=== PATIENT | female | born 1935 | race Caucasian/White ===

== ENCOUNTER 2017-04-08 08:34 | Inpatient (IN) | payer OTHER, MEDICARE ==
[2017-04-08] VITALS (9 sets, daily range): BP systolic 91–113; BP diastolic 51–74; PULSE 86–114; RESP 16–22; TEMP 97.7–100; O2SAT 93–96
[~2017-04-08] VITALS: Ht 152.4 cm; Wt 61.9 kg
[2017-04-08] MEDS ORDERED: methylPREDNISolone SOD SUCC 125 MG/2 ML VIAL IVP ONE (08:45)
--- NOTE | 2017-04-08 08:46 | PD ---
HPI Chief Complaint: Respiratory Symptoms Time Seen by Provider: 08:40 Travel History International Travel<30 days: No Contact w/Intl Traveler<30days: No Traveled to known affect area: No History of Present Illness HPI 82-year-old female with history of COPD, here for evaluation of cough, shortness of breath, generalized malaise. Symptoms have been progressively worsening over the last couple of weeks. She was seen by urgent care facility last week and started on an antibiotic which she does not remember the name of. Her symptoms have not been getting any better. She has had a cough productive of greenish/black sputum. No hemoptysis. No history of DVT or PE. No chest pain. Allergies-Medications (Allergen,Severity, Reaction): Coded Allergies: No Known Allergies (Unverified , 04/08/17) Reported Meds & Prescriptions Reported Meds & Active Scripts Active Reported Levaquin (Levofloxacin) 750 Mg Tablet 1 Tab PO DAILY Advair Diskus Inh (Fluticasone-Salmeterol Inh) 100-50 Mcg/Blist Aer 1 Puff INH BID Rinse mouth after use. Advair Diskus Inh (Fluticasone-Salmeterol Inh) 100-50 Mcg/Blist Aer 1 Puff INH BID Rinse mouth after use. Albuterol Neb (Albuterol Sulfate) Unknown Strength Neb Unknown Dose NEB QID NEB PRN Advil Pm (Ibuprofen-Diphenhydramine) 200-38 Mg Tab 1 Tab PO HS PRN Lipitor (Atorvastatin Calcium) 10 Mg Tab 10 Mg PO HS Glucosamine (Glucosamine Sulfate) Unknown Strength Cap Unknown Dose PO DAILY Multiple Vitamin 1 Tab 1 Tab PO DAILY Calcium 600 with Vitamin D (Calcium Carbonate-Cholecalciferol) 600-400 mg-Unit Tab 1 Tab PO DAILY Dicyclomine (Dicyclomine HCl) 10 Mg Cap 10 Mg PO BID Lomotil (Diphenoxylate-Atropine) 2.5-0.025 Mg Tab 1 Tab PO DAILY PRN Synthroid (Levothyroxine Sodium) 88 Mcg Tab 88 Mcg PO DAILY Review of Systems Except as stated in HPI: all other systems reviewed are Neg Physical Exam Narrative GENERAL: Well-developed, well-nourished, no apparent distress. SKIN: Focused skin assessment warm/dry. HEAD: Atraumatic. Normocephalic. EYES: Pupils equal and round. No scleral icterus. No injection or drainage. ENT: Mucous membranes pink and moist. NECK: Trachea midline. No JVD. CARDIOVASCULAR: Regular rate and rhythm. No murmur appreciated. RESPIRATORY: No accessory muscle use. Poor air movement bilaterally. Bibasilar rhonchi. No rales. End expiratory wheezes bilaterally. Breath sounds equal bilaterally. GASTROINTESTINAL: Abdomen soft, non-tender, nondistended. MUSCULOSKELETAL: No obvious deformities. No clubbing. No cyanosis. No edema. NEUROLOGICAL: Awake and alert. No obvious cranial nerve deficits. Motor grossly within normal limits. Normal speech. PSYCHIATRIC: Appropriate mood and affect; insight and judgment normal. Data Data Last Documented VS Vital Signs Date Time Temp Pulse Resp B/P (MAP) Pulse Ox O2 Delivery O2 Flow Rate FiO2 04/08/17 09:55 102 16 102/51 (68) 95 Room Air 04/08/17 08:50 2.00 04/08/17 08:35 100.0 Orders Orders Complete Blood Count With Diff (04/08/17 08:43) Comprehensive Metabolic Panel (04/08/17 08:43) B-Type Natriuretic Peptide (04/08/17 08:43) Act Partial Throm Time (Ptt) (04/08/17 08:43) Prothrombin Time / Inr (Pt) (04/08/17 08:43) Ckmb (Isoenzyme) Profile (04/08/17 08:43) Troponin I (04/08/17 08:43) Blood Culture (04/08/17 08:43) Iv Access Insert/Monitor (04/08/17 08:43) Electrocardiogram (04/08/17 08:43) Ecg Monitoring (04/08/17 08:43) Oximetry (04/08/17 08:43) Oxygen Administration (04/08/17 08:43) Chest, Single Ap (04/08/17 08:43) Sodium Chloride 0.9% Flush (Ns Flush) (04/08/17 08:45) Methylprednisolone So Succ Inj (Solumedr (04/08/17 08:45) Albuterol-Ipratropium Neb (Duoneb Neb) (04/08/17 08:45) Acetaminophen (Tylenol) (04/08/17 09:00) Ceftriaxone Inj (Rocephin Inj) (04/08/17 09:30) Azithromycin Inj (Zithromax Inj) (04/08/17 09:30) CKMB (04/08/17 09:00) CKMB% (04/08/17 09:00) Admit Order (Ed Use Only) (04/08/17 10:31) Labs Laboratory Tests Test 04/08/17 08:55 04/08/17 09:00 04/08/17 09:08 White Blood Count 9.6 TH/MM3 Red Blood Count 3.78 MIL/MM3 Hemoglobin 11.8 GM/DL Hematocrit 34.5 % Mean Corpuscular Volume 91.4 FL Mean Corpuscular Hemoglobin 31.2 PG Mean Corpuscular Hemoglobin Concent 34.2 % Red Cell Distribution Width 11.9 % Platelet Count 180 TH/MM3 Mean Platelet Volume 10.0 FL Neutrophils (%) (Auto) 85.7 % Lymphocytes (%) (Auto) 3.7 % Monocytes (%) (Auto) 9.7 % Eosinophils (%) (Auto) 0.8 % Basophils (%) (Auto) 0.1 % Neutrophils # (Auto) 8.2 TH/MM3 Lymphocytes # (Auto) 0.4 TH/MM3 Monocytes # (Auto) 0.9 TH/MM3 Eosinophils # (Auto) 0.1 TH/MM3 Basophils # (Auto) 0.0 TH/MM3 CBC Comment DIFF FINAL Differential Comment Blood Urea Nitrogen 19 MG/DL Creatinine 1.10 MG/DL Random Glucose 118 MG/DL Total Protein 7.1 GM/DL Albumin 3.0 GM/DL Calcium Level 8.9 MG/DL Alkaline Phosphatase 85 U/L Aspartate Amino Transf (AST/SGOT) 24 U/L Alanine Aminotransferase (ALT/SGPT) 30 U/L Total Bilirubin 0.5 MG/DL Sodium Level 136 MEQ/L Potassium Level 4.3 MEQ/L Chloride Level 101 MEQ/L Carbon Dioxide Level 25.1 MEQ/L Anion Gap 10 MEQ/L Estimat Glomerular Filtration Rate 48 ML/MIN Total Creatine Kinase 231 U/L Creatine Kinase MB 3.9 NG/ML Creatine Kinase MB % 1.7 % Troponin I 0.02 NG/ML Prothrombin Time 10.8 SEC Prothromb Time International Ratio 1.0 RATIO Activated Partial Thromboplast Time 33.4 SEC B-Type Natriuretic Peptide 412 PG/ML MDM Medical Decision Making Medical Screen Exam Complete: Yes Emergency Medical Condition: Yes Interpretation(s) EKG: Ectopic atrial rhythm, rate 101, LBBB, Differential Diagnosis Pneumonia, bronchitis, COPD exacerbation, pulmonary edema, pneumothorax, ACS Narrative Course Chest x-ray shows bibasilar densities. Patient was given 3 DuoNeb treatments and IV Solu-Medrol with improvement in wheezing. Patient was on Levaquin as an outpatient. She was on this medication for 3 days. She was febrile on arrival. She'll be admitted for further treatment and evaluation of COPD exacerbation as well as pneumonia with failed outpatient therapy. Case discussed with hospitalist Dr. Johnson who will admit the patient to her service. Diagnosis Primary Impression: Pneumonia Qualified Codes: J18.9 - Pneumonia, unspecified organism Additional Impression: COPD exacerbation Admitting Information Admitting Physician Requests: Admit Jian Poole MD Apr 08, 2017 08:46
[2017-04-08] MEDS: RESP: ALBUTEROL 2.5 MG/IPRATROPIUM 0.5 MG NEB (SCH) INH ×4 (08:49→21:24)
[2017-04-08] MEDS ORDERED: ACETAMINOPHEN 325 MG TAB PO ONE (09:00)
--- NOTE | 2017-04-08 09:26 | RADRPT ---
EXAM DATE/TIME: 04/08/2017 09:14 [facility] COMPARISON: No previous studies available for comparison. EXTERNAL COMPARISON : [facility] February 06, 2017 INDICATIONS : Short of breath, cough. MEDICAL HISTORY : Chronic obstructive pulmonary disease. SURGICAL HISTORY : None. ENCOUNTER: Initial ACUITY: 3 weeks PAIN SCORE: 0/10 LOCATION: Bilateral chest FINDINGS: A single view of the chest is obtained. Cardiomegaly. Bibasilar densities. The cardiomediastinal con tours are unremarkable. Osseous structures are intact. CONCLUSION: Bibasilar densities. Cardiomegaly. Robson Rodriguez MD on April 08, 2017 at 9:23 Board Certified Radiologist. This report was verified electronically.
[2017-04-08] MEDS ORDERED: cefTRIAXone INJ 1,000 MG in SODIUM CHLORIDE 0.9% INJ 100 ML IV ONE (09:30)
[2017-04-08] MEDS ORDERED: AZITHROMYCIN INJ 500 MG in SODIUM CHLOR 0.9% 250 ML INJ 250 ML IV ONE (09:30)
[2017-04-08 09:31] LABS: AUTOMATED NEUTROPHIL # 8.2 TH/MM3 (1.8-7.7); BASOPHIL % 0.1 % (0.0-2.0); EOSINOPHIL # 0.1 TH/MM3 (0-0.4); EOSINOPHIL % 0.8 % (0.0-4.0); HEMATOCRIT 34.5 % (35.0-46.0); LYMPH % 3.7 % (9.0-44.0); LYMPHOCYTE # 0.4 TH/MM3 (1.0-4.8); MEAN CELL VOLUME 91.4 FL (80.0-100.0); MEAN CORPUSCULAR HEMOGLOBIN 31.2 PG (27.0-34.0); MEAN CORPUSCULAR HGB CONC 34.2 % (32.0-36.0); MONO % 9.7 % (0.0-8.0); NEUT % 85.7 % (16.0-70.0); PLATELET COUNT 180 TH/MM3 (150-450); RED BLOOD COUNT 3.78 MIL/MM3 (4.00-5.30); RED CELL DISTRIBUTION WIDTH 11.9 % (11.6-17.2); WHITE BLOOD COUNT 9.6 TH/MM3 (4.0-11.0)
[2017-04-08 09:41] LABS: HEMO FLAGS DIFF FINAL
[2017-04-08 09:45] LABS: APTT (PATIENT) 33.4 SEC (24.3-30.1); PROTHROMBIN TIME - PATIENT 10.8 SEC (9.8-11.6)
[2017-04-08] MEDS: SODIUM CHLORIDE 0.9% FLUSH 10 ML FLUSH IVF PRN ×2 (09:49→10:39)
[2017-04-08 09:57] LABS: CHLORIDE 101 MEQ/L (98-107); POTASSIUM 4.3 MEQ/L (3.5-5.1); SODIUM (NA) 136 MEQ/L (136-145)
[2017-04-08 10:02] LABS: ANION GAP 10 MEQ/L (5-15); BICARBONATE 25.1 MEQ/L (21.0-32.0); BLOOD UREA NITROGEN 19 MG/DL (7-18)
[2017-04-08] MEDS ORDERED: ADVI200T17 PO (10:04)
[2017-04-08] MEDS ORDERED: LIPI10TA PO (10:04)
[2017-04-08] MEDS ORDERED: SYNT88TA PO (10:04)
[2017-04-08] MEDS ORDERED: LEVA750T9 PO (10:04)
[2017-04-08] MEDS ORDERED: MULTTAB67 PO (10:04)
[2017-04-08] MEDS ORDERED: CALC1TAB87 PO (10:04)
[2017-04-08] MEDS ORDERED: GLUC500C5 PO (10:04)
[2017-04-08] MEDS ORDERED: ADVA100A INH ×2 (10:04)
[2017-04-08] MEDS ORDERED: DICY10CA12 PO (10:04)
[2017-04-08] MEDS ORDERED: LOMO2.5T PO (10:04)
[2017-04-08] MEDS ORDERED: ALBU0.63 NEB (10:04)
[2017-04-08 10:05] LABS: ALT (GPT) 30 U/L (10-53); AST (GOT) 24 U/L (15-37); GLOMERULAR FILTRATION RATE 48 ML/MIN (>89)
[2017-04-08 10:06] LABS: TOTAL BILIRUBIN ADULT 0.5 MG/DL (0.2-1.0)
[2017-04-08 10:08] LABS: ALKALINE PHOSPHATASE 85 U/L (45-117); CREATINE KINASE 231 U/L (26-192)
[2017-04-08 10:20] LABS: CKMB 3.9 NG/ML (0.5-3.6)
[2017-04-08] MEDS ORDERED: SODIUM CHLORIDE 0.9% FLUSH 10 ML FLUSH IV FLUSH PRN (11:30)
[2017-04-08] MEDS ORDERED: RESP: ALBUTEROL 2.5 MG/3 ML NEB (PRN) INH (11:30)
[2017-04-08] MEDS ORDERED: FUROSEMIDE 20 MG/2 ML VIAL IV PUSH ONE (12:00)
--- NOTE | 2017-04-08 12:07 | EKG ---
Date Performed: 04/08/2017 Time Performed: 09:00:37 PTAGE: 82 years EKG: UNCERTAIN REGULAR RHYTHM POSSIBLY AV PACED RHYTHM, POSSIBLE Sinus rhythm LEFT BUNDLE BRANCH BLOCK ABNORMAL ECG NO PREVIOUS TRACING DOCTOR: Dav Blank Interpretating Date/Time 04/08/2017 12:05:42
[2017-04-08] MEDS: ENOXAPARIN SODIUM 40 MG/0.4 ML SYRINGE SQ SCH (12:10)
--- NOTE | 2017-04-08 13:07 | HHI.HP ---
[facility] [place] Lynette Huang MD Admission Diagnosis pneumonia, COPD exacerbation Diagnoses: Chief Complaint: Cough and shortness of breath Travel History International Travel<30 Days: No Contact w/Intl Traveler <30 Da: No Traveled to Known Affected Are: No Sepsis Criteria SIRS Criteria (2 or more): Heart rate over 90 History of Present Illness Patient is a very pleasant 82-year-old female with a known history of COPD who has had about a week of increased shortness of breath, productive cough and malaise. She called her primary doctor who gave her some antibiotics and she took them for the last 3 days. She notes increased work of breathing and dyspnea on exertion. She also complaining of insomnia for the last couple days. She does not have orthopnea by history and denies any edema. Patient's x -ray on my review does show some bilateral patchiness which coincides with the patient's clinical symptoms of pneumonia. Patient has been tachycardic and tachypneic with low-grade temperature in the emergency room. She had some improvement with nebulizer here as well as of IV steroids given in the emergency room. Patient's been admitted to the hospital due to exacerbation of COPD and possible early pneumonia. Review of Systems Constitutional: DENIES: Diaphoretic episodes, Fatigue, Fever, Weight gain, Weight loss, Chills, Dizziness, Change in appetite, Night Sweats Endocrine: DENIES: Abnorml menstrual pattern, Heat/cold intolerance, Polydipsia , Polyuria, Polyphagia Eyes: DENIES: Blurred vision, Diplopia, Eye inflammation, Eye pain, Vision loss , Photosensitivity, Double Vision Ears, nose, mouth, throat: DENIES: Tinnitus, Hearing loss, Vertigo, Nasal discharge, Oral lesions, Throat pain, Hoarseness, Ear Pain, Running Nose, Epistaxis, Sinus Pain, Toothache, Odynophagia Respiratory: COMPLAINS OF: Cough, Wheezing, Sputum production, Shortness of breath, DENIES: Apneas, Snoring, Hemoptysis Cardiovascular: DENIES: Chest pain, Palpitations, Syncope, Dyspnea on Exertion , PND, Lower Extremity Edema, Orthopnea, Claudication Gastrointestinal: DENIES: Abdominal pain, Black stools, Bloody stools, Constipation, Diarrhea, Nausea, Vomiting, Difficulty Swallowing, Anorexia Genitourinary: DENIES: Abnormal vaginal bleeding, Dysmenorrhea, Dyspareunia, Sexual dysfunction, Urinary frequency, Urinary incontinence, Urgency, Hematuria , Dysuria, Nocturia, Vaginal discharge Musculoskeletal: DENIES: Joint pain, Muscle aches, Stiffness, Joint Swelling, Back pain, Neck pain Hematologic/lymphatic: DENIES: Bruising, Lymphadenopathy Immunologic/allergic: DENIES: Eczema, Urticaria Neurologic: DENIES: Abnormal gait, Headache, Localized weakness, Paresthesias, Seizures, Speech Problems, Tremor, Poor Balance Psychiatric: DENIES: Anxiety, Confusion, Mood changes, Depression, Hallucinations, Agitation, Suicidal Ideation, Homicidal Ideation, Delusions Except as stated in HPI: all other systems reviewed are Neg Past Family Social History Past Medical History COPD Hyperlipidemia Joint pain Thyroid disease 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 Past Surgical History Total abdominal hysterectomy, right hand, tonsils Multiple abdominal surgeries Bladder reduction Reported Medications Reviewed in the medical record Allergies: Coded Allergies: No Known Allergies (Unverified , 04/08/17) Active Ordered Medications Reviewed in the medical record Family History Father has a history of Alzheimer's and , mother healthy but at age 96 Physical Exam Vital Signs Vital Signs Date Time Temp Pulse Resp B/P (MAP) Pulse Ox O2 Delivery O2 Flow Rate FiO2 04/08/17 12:31 92 16 97/58 (71) 95 Nasal Cannula 2.00 04/08/17 12:30 98.8 87 20 96/61 (73) 96 04/08/17 10:30 93 16 95 Room Air 2.00 04/08/17 09:55 102 16 102/51 (68) 95 Room Air 04/08/17 09:05 105 16 99/61 (74) 96 Room Air 04/08/17 08:50 95 Nasal Cannula 2.00 04/08/17 08:45 96 Nasal Cannula 2.00 04/08/17 08:45 22 96 Nasal Cannula 2.00 04/08/17 08:45 110 22 96 Nasal Cannula 2.00 04/08/17 08:35 100.0 114 22 113/74 (87) 93 Physical Exam GENERAL: This is a well-nourished, well-developed patient,hoarse, increased AP diameter SKIN: No rashes, ecchymoses or lesions. Cool and dry. HEAD: Atraumatic. Normocephalic. No temporal or scalp tenderness. EYES: Pupils equal round and reactive. Extraocular motions intact. No scleral icterus. No injection or drainage. ENT: Nose without bleeding, purulent drainage or septal hematoma. Throat without erythema, tonsillar hypertrophy or exudate. Uvula midline. Airway patent. NECK: Trachea midline. No JVD or lymphadenopathy. Supple, nontender, no meningeal signs. CARDIOVASCULAR: Regular rate and rhythm without murmurs, gallops, or rubs. RESPIRATORY: Decreased breath sounds equal bilaterally. No wheezes, rales, or rhonchi. GASTROINTESTINAL: Abdomen soft, non-tender, nondistended. No hepato-splenomegaly , or palpable masses. No guarding. MUSCULOSKELETAL: Extremities without clubbing, cyanosis, or edema. No joint tenderness, effusion, or edema noted. No calf tenderness. Negative Homans sign bilaterally. NEUROLOGICAL: Awake and alert. Cranial nerves II through XII intact. Motor and sensory grossly within normal limits. Five out of 5 muscle strength in all muscle groups. Normal speech. Laboratory Laboratory Tests Test 04/08/17 08:55 04/08/17 09:00 04/08/17 09:08 White Blood Count 9.6 Red Blood Count 3.78 Hemoglobin 11.8 Hematocrit 34.5 Mean Corpuscular Volume 91.4 Mean Corpuscular Hemoglobin 31.2 Mean Corpuscular Hemoglobin Concent 34.2 Red Cell Distribution Width 11.9 Platelet Count 180 Mean Platelet Volume 10.0 Neutrophils (%) (Auto) 85.7 Lymphocytes (%) (Auto) 3.7 Monocytes (%) (Auto) 9.7 Eosinophils (%) (Auto) 0.8 Basophils (%) (Auto) 0.1 Neutrophils # (Auto) 8.2 Lymphocytes # (Auto) 0.4 Monocytes # (Auto) 0.9 Eosinophils # (Auto) 0.1 Basophils # (Auto) 0.0 CBC Comment DIFF FINAL Differential Comment Blood Urea Nitrogen 19 Creatinine 1.10 Random Glucose 118 Total Protein 7.1 Albumin 3.0 Calcium Level 8.9 Alkaline Phosphatase 85 Aspartate Amino Transf (AST/SGOT) 24 Alanine Aminotransferase (ALT/SGPT) 30 Total Bilirubin 0.5 Sodium Level 136 Potassium Level 4.3 Chloride Level 101 Carbon Dioxide Level 25.1 Anion Gap 10 Estimat Glomerular Filtration Rate 48 Total Creatine Kinase 231 Creatine Kinase MB 3.9 Creatine Kinase MB % 1.7 Troponin I 0.02 Prothrombin Time 10.8 Prothromb Time International Ratio 1.0 Activated Partial Thromboplast Time 33.4 B-Type Natriuretic Peptide 412 Date/Time Source Procedure Growth Status 04/08/17 09:08 Blood Peripheral Aerobic Blood Culture Pending Received 04/08/17 09:08 Blood Peripheral Anaerobic Blood Culture Pending Received Result Diagram: 04/08/17 0855 04/08/17 0900 Imaging Chest x-ray on my review does show some bilateral patchiness with increased air hodge Caprini VTE Risk Assessment Caprini VTE Risk Assessment: Mod/High Risk (score >= 2) Caprini Risk Assessment Model Point Value = 1 Point Value = 2 Point Value = 3 Point Value = 5 Age 41-60 Minor surgery BMI > 25 kg/m2 Swollen legs Varicose veins or History of unexplained or recurrent spontaneous Oral contraceptives or hormone replacement Sepsis (< 1 month) Serious lung disease, including pneumonia (< 1 month) Abnormal pulmonary function Acute myocardial infarction Congestive heart failure (< 1 month) History of inflammatory bowel disease Medical patient at bed rest Age 61-74 Arthroscopic surgery Major open surgery (> 45 min) Laparoscopic surgery (> 45 min) Malignancy Confined to bed (> 72 hours) Immobilizing plaster cast Central venous access Age >= 75 History of VTE Family history of VTE Factor V Leiden Prothrombin [id number] Lupus anticoagulant Anticardiolipin antibodies Elevated serum homocysteine Heparin-induced thrombocytopenia Other congenital or acquired thrombophilia Stroke (< 1 month) Elective arthroplasty Hip, pelvis, or leg fracture Acute spinal cord injury (< 1 month) Prophylaxis Regimen Total Risk Factor Score Risk Level Prophylaxis Regimen 0-1 Low Early ambulation 2 Moderate Order ONE of the following: *Sequential Compression Device (SCD) *Heparin 5000 units SQ BID 3-4 Higher Order ONE of the following medications: *Heparin 5000 units SQ TID *Enoxaparin/Lovenox 40 mg SQ daily (WT < 150 kg, CrCl > 30 mL/min) *Enoxaparin/Lovenox 30 mg SQ daily (WT < 150 kg, CrCl > 10-29 mL/min) *Enoxaparin/Lovenox 30 mg SQ BID (WT < 150 kg, CrCl > 30 mL/min) AND/OR *Sequential Compression Device (SCD) 5 or more Highest Order ONE of the following medications: *Heparin 5000 units SQ TID (Preferred with Epidurals) *Enoxaparin/Lovenox 40 mg SQ daily (WT < 150 kg, CrCl > 30 mL/min) *Enoxaparin/Lovenox 30 mg SQ daily (WT < 150 kg, CrCl > 10-29 mL/min) *Enoxaparin/Lovenox 30 mg SQ BID (WT < 150 kg, CrCl > 30 mL/min) AND *Sequential Compression Device (SCD) Assessment and Plan Problem List: (1) COPD exacerbation ICD Code: J44.1 - Chronic obstructive pulmonary disease with (acute) exacerbation Status: Acute Plan: Nebs, IV abx, IV steroids, O2 echo pending (2) Pneumonia ICD Code: J18.9 - Pneumonia, unspecified organism Status: Acute Plan: Continue IV antibiotics, bronchodilators and follow for influenza and sputum if available Code Status Full code Discussed Condition With BLAS Lopez, patient and daughter Physician Certification 2 Midnight Certification Type: Admission for Inpatient Services Order for Inpatient Services The services are ordered in accordance with Medicare regulations or non- Medicare payer requirements, as applicable. In the case of services not specified as inpatient-only, they are appropriately provided as inpatient services in accordance with the 2-midnight benchmark. Estimated LOS (days): 3 3 days is the estimated time the patient will need to remain in the hospital, assuming treatment plan goals are met and no additional complications. Post-Hospital Plan: Home Problem Qualifiers (1) Pneumonia: Qualified Codes: J18.9 - Pneumonia, unspecified organism Lisbeth Johnson MD Apr 08, 2017 13:07
[2017-04-08] MEDS ORDERED: IBUPROFEN 200 MG TAB PO PRN (21:00)
[2017-04-08] MEDS ORDERED: diphenhydrAMINE HCL 25 MG CAP PO PRN (21:00)
[2017-04-08] MEDS: methylPREDNISolone SOD SUCC 40 MG/1 ML VIAL IV PUSH SCH (21:50)
[2017-04-08] MEDS: SODIUM CHLORIDE 0.9% FLUSH 10 ML FLUSH IV FLUSH SCH (21:52)
[2017-04-08] MEDS: DICYCLOMINE HCL 10 MG CAP PO SCH (21:52)
[2017-04-08] MEDS: ZOLPIDEM TARTRATE 10 MG TAB PO PRN (22:26)
[2017-04-09] VITALS (8 sets, daily range): BP systolic 100–122; BP diastolic 55–75; PULSE 79–87; RESP 16–22; TEMP 95.5–97; O2SAT 92–97
[2017-04-09] MEDS: RESP: ALBUTEROL 2.5 MG/IPRATROPIUM 0.5 MG NEB (SCH) INH ×4 (03:57→21:15)
[2017-04-09] MEDS: LEVOTHYROXINE SODIUM 88 MCG TAB PO SCH (06:08)
[2017-04-09] MEDS: SODIUM CHLORIDE 0.9% FLUSH 10 ML FLUSH IV FLUSH SCH ×2 (09:11→21:06)
[2017-04-09] MEDS: AZITHROMYCIN INJ 500 MG in SODIUM CHLOR 0.9% 250 ML INJ 250 ML IV SCH (09:11)
[2017-04-09] MEDS: cefTRIAXone INJ 1,000 MG in SODIUM CHLORIDE 0.9% INJ 100 ML IV SCH (09:11)
[2017-04-09] MEDS: DICYCLOMINE HCL 10 MG CAP PO SCH ×2 (09:12→21:05)
[2017-04-09] MEDS: methylPREDNISolone SOD SUCC 40 MG/1 ML VIAL IV PUSH SCH ×2 (09:12→21:06)
[2017-04-09] MEDS: ENOXAPARIN SODIUM 40 MG/0.4 ML SYRINGE SQ SCH (09:17)
[2017-04-09] MEDS: DIPHENOXYLATE/ATROPINE 2.5 MG/0.025 MG TAB PO PRN (09:17)
--- NOTE | 2017-04-09 10:29 | HHI.PR ---
Subjective Remarks Patient seen and evaluated today in follow-up for pneumonia with COPD exacerbation. Increased congestion and work of breathing overnight with increased sputum and cough. Still quite hoarse. Care plan discussed with patient and Sterling RN Objective Vitals Vital Signs Date Time Temp Pulse Resp B/P (MAP) Pulse Ox O2 Delivery O2 Flow Rate FiO2 04/09/17 08:00 95.5 85 21 104/73 (83) 97 04/09/17 00:00 96.7 87 16 100/55 (70) 95 04/08/17 21:24 94 Nasal Cannula 2.00 04/08/17 20:10 97.7 86 20 100/57 (71) 04/08/17 12:31 92 16 97/58 (71) 95 Nasal Cannula 2.00 04/08/17 12:30 98.8 87 20 96/61 (73) 96 04/08/17 10:30 93 16 95 Room Air 2.00 I/O 04/08/17 04/08/17 04/08/17 04/09/17 04/09/17 04/09/17 07:00 15:00 23:00 07:00 15:00 23:00 Intake Total 350 ml 220 ml Balance 350 ml 220 ml Intake Oral 220 ml IV Total 350 ml # Voids 1 1 Result Diagram: 04/08/17 0855 04/08/17 0900 Objective Remarks GENERAL: This is a well-nourished, well-developed patient, ill appearing and hoarse CARDIOVASCULAR: Regular rate and rhythm without murmurs, gallops, or rubs. RESPIRATORY: Bilateral coarse rhonchi with scattered wheezes. GASTROINTESTINAL: Abdomen soft, non-tender, nondistended. Normal active bowel sounds MUSCULOSKELETAL: Extremities without clubbing, cyanosis, or edema. NEURO: Alert & Oriented x4 to person, place, time, situation. Moves all ext x4 A/P Problem List: (1) COPD exacerbation ICD Code: J44.1 - Chronic obstructive pulmonary disease with (acute) exacerbation Status: Acute Plan: Nebs, IV abx, IV steroids, O2 echo pending (2) Pneumonia ICD Code: J18.9 - Pneumonia, unspecified organism Status: Acute Plan: Continue IV antibiotics, bronchodilators and follow f sputum if available CT of the chest to follow-up legionella pending influenza neg Problem Qualifiers (1) Pneumonia: Qualified Codes: J18.9 - Pneumonia, unspecified organism Lisbeth Johnson MD Apr 09, 2017 10:29
[2017-04-09 11:42] LABS: AUTOMATED NEUTROPHIL # 8.7 TH/MM3 (1.8-7.7); EOSINOPHIL % 0.1 % (0.0-4.0); HEMATOCRIT 34.1 % (35.0-46.0); HEMO FLAGS DIFF FINAL; LYMPH % 4.9 % (9.0-44.0); LYMPHOCYTE # 0.5 TH/MM3 (1.0-4.8); MEAN CORPUSCULAR HEMOGLOBIN 31.3 PG (27.0-34.0); MEAN CORPUSCULAR HGB CONC 34.1 % (32.0-36.0); MONO % 4.7 % (0.0-8.0); NEUT % 90.3 % (16.0-70.0); PLATELET COUNT 199 TH/MM3 (150-450); RED BLOOD COUNT 3.71 MIL/MM3 (4.00-5.30); RED CELL DISTRIBUTION WIDTH 12.5 % (11.6-17.2); WHITE BLOOD COUNT 9.7 TH/MM3 (4.0-11.0)
--- NOTE | 2017-04-09 11:51 | RADRPT ---
EXAM DATE/TIME: 04/09/2017 11:14 [facility] COMPARISON: No previous studies available for comparison. INDICATIONS : Abnormal chest xray. Cough. RADIATION DOSE: 6.43 CTDIvol (mGy) MEDICAL HISTORY : Chronic obstructive pulmonary disease. Hypercholesterolemia. SURGICAL HISTORY : None. ENCOUNTER: Initial ACUITY: 2 days PAIN SCALE: 0/10 LOCATION: chest TECHNIQUE: Volumetric scanning of the chest was performed. Using automated exposure control and adjustment of t he mA and/or kV according to patient size, radiation dose was kept as low as reasonably achievable to obtain optimal diagnostic quality images. DICOM format image data is available electronically for r eview and comparison. Follow-up recommendations for detected pulmonary nodules are based at a minimum on nodule size and pa tient risk factors according to Fleischner Society Guidelines. FINDINGS: LUNGS: There are scattered groundglass opacities in the bilateral posterior lower lobes, lingula, and upper lobes. PLEURAE: There is trace right pleural effusion. MEDIASTINUM: Subcentimeter mediastinal nodes do not meet CT size criteria. Evaluation of the yue is limited due t o lack of contrast. There is small anterior pericardial effusion. Moderate coronary artery calcificat ions. Heart is otherwise grossly unremarkable. AXILLAE: Within normal limits. No lymphadenopathy. MUSCULOSKELETAL: Within normal limits for patient age. MISCELLANEOUS: The visualized upper abdominal organs demonstrate no acute abnormality. CONCLUSION: 1. Scattered bilateral bilobar ground glass opacities concerning for multilobar pneumonia or atypical pneumonia (PCP, CMV, RSV) in the appropriate clinical setting. Differential considerations include a cute interstitial pneumonia, developing pulmonary edema, developing ARDS, hypersensitivity pneumoniti s and adenocarcinoma in situ amongst other etiologies. Followup to resolution is recommended. 2. Trace right pleural effusion. 3. Trace pericardial effusion. 4. Moderate coronary artery cavitations. Abel Frankel MD on April 09, 2017 at 11:38 Board Certified Radiologist. This report was verified electronically.
[2017-04-09 11:59] LABS: POTASSIUM 3.6 MEQ/L (3.5-5.1)
[2017-04-09] MEDS ORDERED: LEVOFLOXACIN 750 MG PREMIX INJ 150 ML IV SCH (12:00)
[2017-04-09 12:02] LABS: BICARBONATE 25.6 MEQ/L (21.0-32.0)
--- NOTE | 2017-04-09 15:00 | ECHRPT ---
Indication: SHORTNESS OF BREATH CONCLUSIONS The left ventricular systolic function is severely reduced with an estimated ejection fraction in th e range of 30-35%. Global hypokinesis Moderately dilated left ventricle. Wall thickness is normal. Mild thickening of the mitral valve leaflets. severe mitral valve regurgitation. Aortic valve sclerosis is present. Mild aortic valve regurgitation. There is mild tricuspid valve regurgitation. The estimated pulmonary arterial pressure is 28 mmHg. BP: 100 / 55 HR: 70 Rhythm: Sinus MEASUREMENTS (Male / Female) Normal Values Technical Quality:Good 2D ECHO LV Diastolic Diameter PLAX 5.9 cm 4.2 - 5.9 / 3.9 - 5.3 cm LV Systolic Diameter PLAX 5.0 cm IVS Diastolic Thickness 0.9 cm 0.6 - 1.0 / 0.6 - 0.9 cm LVPW Diastolic Thickness 0.9 cm 0.6 - 1.0 / 0.6 - 0.9 cm LV Relative Wall Thickness 0.3 RV Internal Dim ED PLAX 2.0 cm LA Systolic Diameter LX 3.4 cm 3.0 - 4.0 / 2.7 - 3.8 cm LV Ejection Fraction MOD 4C 29.8 % LV Cardiac Index MOD 4C 1572.7 cm/minm LV Ejection Fraction 4C AL 32.3 % LV Cardiac Index 4C AL 1778.4 cm/minm M-MODE Aortic Root Diameter MM 2.4 cm AV Cusp Separation MM 1.5 cm DOPPLER AV Peak Velocity 166.0 cm/s AV Peak Gradient 11.0 mmHg AI Peak Velocity 319.0 cm/s AI Peak Gradient 40.7 mmHg AI Pressure Half Time 507.0 ms LVOT Peak Velocity 120.0 cm/s LVOT Peak Gradient 5.8 mmHg MV Area PHT 5.9 cm Mitral E Point Velocity 104.0 cm/s Mitral A Point Velocity 97.7 cm/s Mitral E to A Ratio 1.1 LV E' Lateral Velocity 6.4 cm/s Mitral E to LV E' Lateral Ratio 16.2 LV E' Septal Velocity 4.9 cm/s Mitral E to LV E' Septal Ratio 21.4 TR Peak Velocity 212.0 cm/s TR Peak Gradient 18.0 mmHg PV Peak Velocity 113.0 cm/s PV Peak Gradient 5.1 mmHg FINDINGS LEFT VENTRICLE The left ventricular systolic function is severely reduced with an estimated ejection fraction in th e range of 30-35%. Moderately dilated left ventricle. Wall thickness is normal. RIGHT VENTRICLE Normal right ventricular size and systolic function. LEFT ATRIUM The left atrial size is normal. RIGHT ATRIUM The right atrial size is normal. ATRIAL SEPTUM Normal atrial septal thickness without atrial level shunting by limited color doppler interrogation. AORTA The aortic root and proximal ascending aorta are normal in size on limited imaging. MITRAL VALVE Mild thickening of the mitral valve leaflets. severe mitral valve regurgitation. AORTIC VALVE Aortic valve sclerosis is present. Mild aortic valve regurgitation. TRICUSPID VALVE There is mild tricuspid valve regurgitation. The estimated pulmonary arterial pressure is 28 mmHg. PULMONARY VALVE The pulmonary valve is not well visualized. VESSELS The inferior vena cava is normal in size. PERICARDIUM No pericardial effusion. Suly Nguyen MD, FACC (Electronically Signed) Final Date:09 April 2017 14:59
[2017-04-09] MEDS: BENZONATATE 100 MG CAP PO PRN ×2 (15:56→22:48)
[2017-04-09] MEDS: ZOLPIDEM TARTRATE 10 MG TAB PO PRN (22:48)
[2017-04-10] VITALS: BP 97/62; PULSE 89; RESP 20; TEMP 97; O2SAT 95
[2017-04-10] MEDS: RESP: ALBUTEROL 2.5 MG/IPRATROPIUM 0.5 MG NEB (SCH) INH ×4 (04:00→21:00)
[2017-04-10] MEDS: LEVOTHYROXINE SODIUM 88 MCG TAB PO SCH (05:37)
[2017-04-10] MEDS: BENZONATATE 100 MG CAP PO PRN ×3 (05:37→21:27)
[2017-04-10 08:00] VITALS: BP_SYST 101; BP_SYST 96; BP_DIAS 59; BP_DIAS 65; PULSE 76; PULSE 79; RESP 16; TEMP 97; TEMP 97.3; O2SAT 95; O2SAT 96
[2017-04-10] MEDS: DICYCLOMINE HCL 10 MG CAP PO SCH ×2 (08:38→20:33)
[2017-04-10] MEDS: SODIUM CHLORIDE 0.9% FLUSH 10 ML FLUSH IV FLUSH SCH ×2 (08:38→20:34)
[2017-04-10] MEDS: cefTRIAXone INJ 1,000 MG in SODIUM CHLORIDE 0.9% INJ 100 ML IV SCH (08:38)
[2017-04-10] MEDS: methylPREDNISolone SOD SUCC 40 MG/1 ML VIAL IV PUSH SCH ×2 (08:38→20:33)
[2017-04-10 09:52] VITALS: O2SAT 92
[2017-04-10] MEDS: AZITHROMYCIN INJ 500 MG in SODIUM CHLOR 0.9% 250 ML INJ 250 ML IV SCH (10:34)
[2017-04-10] MEDS: ACETAMINOPHEN 325 MG TAB PO PRN ×2 (11:18→21:26)
[2017-04-10] MEDS: ENOXAPARIN SODIUM 40 MG/0.4 ML SYRINGE SQ SCH (11:18)
[2017-04-10 12:00] VITALS: BP 97/60; PULSE 97; RESP 20; TEMP 97.6; O2SAT 96
--- NOTE | 2017-04-10 13:32 | HHI.PR ---
Subjective Remarks Patient seen in follow up for severe pneumonia and now known to have systolic cardiac dysfunction with MR Some improvement in voice and cough with tessalon, requests tylenol for leg pain Plan discussed with patient and daughter Objective Vitals Vital Signs Date Time Temp Pulse Resp B/P (MAP) Pulse Ox O2 Delivery O2 Flow Rate FiO2 04/10/17 12:00 97.6 97 20 97/60 (72) 96 04/10/17 09:52 92 Nasal Cannula 2.00 04/10/17 08:00 97.3 76 16 96/65 (75) 96 04/10/17 00:00 97.0 89 20 97/62 (74) 95 04/09/17 21:15 95 Nasal Cannula 2.00 04/09/17 20:00 97.0 84 18 111/65 (80) 95 04/09/17 16:01 95 Nasal Cannula 2.00 04/09/17 15:55 96.8 79 21 109/75 (86) 92 I/O 04/09/17 04/09/17 04/09/17 04/10/17 04/10/17 04/10/17 06:59 14:59 22:59 06:59 14:59 22:59 Intake Total 220 ml 360 ml 180 ml 350 ml Balance 220 ml 360 ml 180 ml 350 ml Intake Oral 220 ml 360 ml 180 ml IV Total 350 ml # Voids 1 2 0 # Bowel Movements 1 0 Result Diagram: 04/09/17 1135 04/09/17 1135 Imaging Last Impressions Chest CT 04/09/17 0000 Signed Impressions: Service Date/Time: Sunday, April 09, 2017 11:14 - CONCLUSION: 1. Scattered bilateral bilobar ground glass opacities concerning for multilobar pneumonia or atypical pneumonia (PCP, CMV, RSV) in the appropriate clinical setting. Differential considerations include acute interstitial pneumonia, developing pulmonary edema, developing ARDS, hypersensitivity pneumonitis and adenocarcinoma in situ amongst other etiologies. Followup to resolution is recommended. 2. Trace right pleural effusion. 3. Trace pericardial effusion. 4. Moderate coronary artery cavitations. Abel Frankel MD Chest X-Ray 04/08/17 0843 Signed Impressions: Service Date/Time: Saturday, April 08, 2017 09:14 - CONCLUSION: Bibasilar densities. Cardiomegaly. Robson Rodriguez MD Objective Remarks GENERAL: This is a well-nourished, well-developed patient, ill appearing and voice is improved CARDIOVASCULAR: Regular rate and rhythm without appreciable murmurs, gallops, or rubs. RESPIRATORY: Bilateral coarse rhonchi with scattered wheezes. GASTROINTESTINAL: Abdomen soft, non-tender, nondistended. Normal active bowel sounds MUSCULOSKELETAL: Extremities without clubbing, cyanosis, or edema. NEURO: Alert & Oriented x4 to person, place, time, situation. Moves all ext x4 A/P Problem List: (1) COPD exacerbation ICD Code: J44.1 - Chronic obstructive pulmonary disease with (acute) exacerbation Status: Acute Plan: Nebs, IV abx, IV steroids, O2 echo pending (2) Pneumonia ICD Code: J18.9 - Pneumonia, unspecified organism Status: Acute Plan: Continue IV rocephin and azithromycin, bronchodilators and follow sputum pending CT of the chest consistent with atypical pneumonia ? vascular congestion on my review legionella pending influenza neg (3) Systolic heart failure ICD Code: I50.20 - Unspecified systolic (congestive) heart failure Plan: Echo returned with new Systolic dysfunction and severe MR Medial management with limitations due to Hypotension Cardio consult (4) Leg pain ICD Code: M79.606 - Pain in leg, unspecified Plan: better with APA which we will Rx Assessment and Plan lmwh Problem Qualifiers (1) Pneumonia: Qualified Codes: J18.9 - Pneumonia, unspecified organism Lisbeth Johnson MD Apr 10, 2017 13:32
[2017-04-10 14:12] LABS: BLOOD GAS BASE EXCESS -0.2 mmol/L (-2-2); BLOOD GAS CARBOXYHEMOGLOBIN 1.2 % (0-4); BLOOD GAS HCO3 24 mmol/L (22-26); BLOOD GAS METHEMOGLOBIN 0.9 % (0-2); BLOOD GAS O2 HGB SATURATION 96 % (90-100); BLOOD GAS OXYGEN CONTENT 21.3 Vol % (12.0-20.0); BLOOD GAS PCO2 36 mmHG (38-42); BLOOD GAS PO2 99 mmHG (61-120); BLOOD GAS TOTAL HGB 15.8 G/DL (12.0-16.0); TEMP CORR TO 98.6
[2017-04-10 14:13] LABS: CRITICAL VALUE NO; DRAW SITE RT RADIAL; LITER FLOW 2 L/M; NUMBER OF ARTERIAL PUNCTURES 1; OXYGEN DEVICE NASAL CANNULA; STAT NO; ULNAR PULSE PRESENT
[2017-04-10 20:00] VITALS: BP 106/68; PULSE 88; RESP 20; TEMP 97.7; O2SAT 95
[2017-04-10] MEDS ORDERED: SENNOSIDES 8.6 MG TAB PO PRN (20:15)
[2017-04-10] MEDS ORDERED: LACTULOSE SYRUP 20 GM/30 ML CUP PO PRN (20:15)
[2017-04-10] MEDS ORDERED: ONDANSETRON HCL 4 MG/2 ML VIAL IVP PRN (20:15)
--- NOTE | 2017-04-10 20:16 | HHI.PR ---
Subjective Remarks DRAFT pt not seen F/U PNA, COPD and SHF Objective Vitals Vital Signs Date Time Temp Pulse Resp B/P (MAP) Pulse Ox O2 Delivery O2 Flow Rate FiO2 04/10/17 12:00 97.6 97 20 97/60 (72) 96 04/10/17 09:52 92 Nasal Cannula 2.00 04/10/17 08:00 97.3 76 16 96/65 (75) 96 04/10/17 08:00 97.0 79 16 101/59 (73) 95 04/10/17 00:00 97.0 89 20 97/62 (74) 95 04/09/17 21:15 95 Nasal Cannula 2.00 I/O 04/09/17 04/09/17 04/09/17 04/10/17 04/10/17 04/10/17 06:59 14:59 22:59 06:59 14:59 22:59 Intake Total 220 ml 360 ml 180 ml 350 ml Balance 220 ml 360 ml 180 ml 350 ml Intake Oral 220 ml 360 ml 180 ml IV Total 350 ml # Voids 1 2 0 # Bowel Movements 1 0 Result Diagram: 04/09/17 1135 04/09/17 1135 A/P Problem List: (1) COPD exacerbation ICD Code: J44.1 - Chronic obstructive pulmonary disease with (acute) exacerbation Status: Acute (2) Pneumonia ICD Code: J18.9 - Pneumonia, unspecified organism Status: Acute (3) Systolic heart failure ICD Code: I50.20 - Unspecified systolic (congestive) heart failure Status: Acute (4) Leg pain ICD Code: M79.606 - Pain in leg, unspecified Assessment and Plan 1) COPD exacerbation Ct Nebs, IV abx, IV steroids, O2 (2) Pneumonia Continue IV rocephin and azithromycin, bronchodilators and follow sputum pending CT of the chest consistent with atypical pneumonia ? vascular congestion on my review legionella pending influenza neg (3) Systolic heart failure IEcho returned with new Systolic dysfunction and severe MR Medial management with limitations due to Hypotension Cardio consult (4) Leg pain better with APA which we will Rx Acute vs CKD stage 3 DVT prophylaxis with Lovenox Problem Qualifiers (1) Pneumonia: Qualified Codes: J18.9 - Pneumonia, unspecified organism Jamison Tucker MD Apr 10, 2017 20:16
[2017-04-10] MEDS: DOCUSATE SODIUM 50 MG/SENNA 8.6 MG TAB PO SCH (20:35)
[2017-04-10 21:00] VITALS: O2SAT 94
[2017-04-10] MEDS: ZOLPIDEM TARTRATE 10 MG TAB PO PRN (21:27)
[2017-04-11] VITALS (9 sets, daily range): BP systolic 91–116; BP diastolic 65–71; PULSE 75–93; RESP 16–22; TEMP 97–98.1; O2SAT 94–98
[2017-04-11] MEDS: RESP: ALBUTEROL 2.5 MG/IPRATROPIUM 0.5 MG NEB (SCH) INH ×4 (03:19→21:46)
[2017-04-11] MEDS: ACETAMINOPHEN 325 MG TAB PO PRN ×3 (03:35→16:34)
[2017-04-11 06:10] LABS: POTASSIUM 3.9 MEQ/L (3.5-5.1)
[2017-04-11 06:14] LABS: BICARBONATE 26.6 MEQ/L (21.0-32.0)
[2017-04-11] MEDS: LEVOTHYROXINE SODIUM 88 MCG TAB PO SCH (06:34)
--- NOTE | 2017-04-11 07:12 | MB ---
cc: ALEAH OSMAN MD DATE OF CONSULTATION 04/10/2017 REASON FOR CONSULTATION Cardiomyopathy HISTORY OF PRESENT ILLNESS Ms. Wilkins is an 82-year-old female who does have a history of COPD. She presented with progressive shortness of breath and work up subsequently revealed multi-lobar pneumonia. Echocardiogram was obtained and also revealed a systolic dysfunction with an EF of 30%. Cardiology was subsequently consulted. The patient reports that she has had progressive shortness of breath. She specifically denied any chest pain. Her cough was productive for green/black sputum. ALLERGIES NO KNOWN DRUG ALLERGIES. OUTPATIENT MEDICATIONS Include: 1. Synthroid 2. Lipitor 3. Albuterol 4. Advair PAST MEDICAL HISTORY Significant for: 1. Hypothyroidism 2. COPD 3. Hyperlipidemia REVIEW OF SYSTEMS Except as mentioned in the HPI, all 12 systems are negative. FAMILY HISTORY Positive for CAD. PHYSICAL EXAM On physical examination, vital signs 97.6, 97, 20, 97/60. GENERAL: In general, she is a thin elderly female who does have pursed-lip breathing and accessory muscle use while on nasal cannula. LUNGS: Decreased, but clear to auscultation. CARDIOVASCULAR: On examination, she has a normal S1 and S2. I did not appreciate any murmurs, rubs or gallops. ABDOMEN: The abdomen is soft. EXTREMITIES: Free from edema. Echocardiogram shows an EF of 30-35%. There is severe mitral regurgitation. LAB VALUES Significant for a BNP of 412, a troponin of 0.02, albumin of 3.0, creatinine initially was 1.1 and yesterday was 1.5. IMPRESSIONS Systolic heart failure - The patient does have shortness of breath, mildly elevated BNP and an EF of 35%. While certainly the pneumonia creates some of her difficulties with her shortness of breath, she does likely have a component of failure. The etiology to her cardiomyopathy is, at this point, unknown. Her blood pressure is too low to add either a beta morteza or an NICO inhibitor. At this point, I would like her to recover from her pneumonia at which time we can consider nuclear stress test. Cardiomyopathy with EF of 35% - as above. Her blood pressure is too low for beta-morteza or Nico. Potential etiologies to include ischemia versus overwhelming infection versus valvular heart disease versus other. Again, further workup will be pending her recovery with the pneumonia. Pneumonia - The patient is on antibiotics per the primary team. Renal insufficiency - The patient has a creatinine of 1.5. Additionally the BUN to creatinine ratio is elevated, suggesting potential dehydration. We will obtain a BMP in a.m. Further recommendations will be pending studies. John Ramirez/DJL /4:42 PM /7:02 AM
[2017-04-11] MEDS: FUROSEMIDE 20 MG TAB PO SCH ×2 (08:31→08:34)
[2017-04-11] MEDS: DICYCLOMINE HCL 10 MG CAP PO SCH ×2 (08:31→21:53)
[2017-04-11] MEDS: DOCUSATE SODIUM 50 MG/SENNA 8.6 MG TAB PO SCH ×2 (08:31→21:53)
[2017-04-11] MEDS: POTASSIUM CHLORIDE 10 MEQ CONTROLLED RELEASE TAB PO SCH (08:31)
[2017-04-11] MEDS: methylPREDNISolone SOD SUCC 40 MG/1 ML VIAL IV PUSH SCH (08:32)
[2017-04-11] MEDS: cefTRIAXone INJ 1,000 MG in SODIUM CHLORIDE 0.9% INJ 100 ML IV SCH (08:32)
[2017-04-11] MEDS: SODIUM CHLORIDE 0.9% FLUSH 10 ML FLUSH IV FLUSH SCH ×2 (08:32→21:54)
[2017-04-11] MEDS: DIPHENOXYLATE/ATROPINE 2.5 MG/0.025 MG TAB PO PRN (10:18)
[2017-04-11] MEDS: AZITHROMYCIN INJ 500 MG in SODIUM CHLOR 0.9% 250 ML INJ 250 ML IV SCH (10:18)
--- NOTE | 2017-04-11 12:15 | HHI.PR ---
Subjective Remarks Follow-up pneumonia and heart failure. Feeling better decreasing dyspnea but still with limited activity. Tolerating room air discussed with RN Objective Vitals Vital Signs Date Time Temp Pulse Resp B/P (MAP) Pulse Ox O2 Delivery O2 Flow Rate FiO2 04/11/17 10:59 96 Nasal Cannula 2.00 04/11/17 08:00 97.6 81 17 104/65 (78) 97 04/11/17 04:00 98.1 79 20 116/70 (85) 96 04/11/17 00:00 97.1 86 20 115/70 (85) 97 04/10/17 21:00 94 Nasal Cannula 2.00 04/10/17 20:00 97.7 88 20 106/68 (81) 95 I/O 04/10/17 04/10/17 04/10/17 04/11/17 04/11/17 04/11/17 07:00 15:00 23:00 07:00 15:00 23:00 Intake Total 180 ml 350 ml 480 ml 60 ml Balance 180 ml 350 ml 480 ml 60 ml Intake Oral 180 ml 480 ml 60 ml IV Total 350 ml # Voids 0 3 1 # Bowel Movements 0 3 0 Result Diagram: 04/09/17 1135 04/11/17 0450 Imaging Last Impressions Chest CT 04/09/17 0000 Signed Impressions: Service Date/Time: Sunday, April 09, 2017 11:14 - CONCLUSION: 1. Scattered bilateral bilobar ground glass opacities concerning for multilobar pneumonia or atypical pneumonia (PCP, CMV, RSV) in the appropriate clinical setting. Differential considerations include acute interstitial pneumonia, developing pulmonary edema, developing ARDS, hypersensitivity pneumonitis and adenocarcinoma in situ amongst other etiologies. Followup to resolution is recommended. 2. Trace right pleural effusion. 3. Trace pericardial effusion. 4. Moderate coronary artery cavitations. Abel Frankel MD Chest X-Ray 04/08/17 0843 Signed Impressions: Service Date/Time: Saturday, April 08, 2017 09:14 - CONCLUSION: Bibasilar densities. Cardiomegaly. Robson Rodriguez MD Objective Remarks Well-developed, well-nourished in no distress on room air No JVD supple neck Regular rate and rhythm Equal in expansion decreased breath sounds Abdomen soft nontender Extremities no cyanosis with pitting edema Alert and oriented nonfocal Procedures None A/P Problem List: (1) COPD exacerbation ICD Code: J44.1 - Chronic obstructive pulmonary disease with (acute) exacerbation Status: Acute (2) Pneumonia ICD Code: J18.9 - Pneumonia, unspecified organism Status: Acute (3) Systolic heart failure ICD Code: I50.20 - Unspecified systolic (congestive) heart failure Status: Acute (4) Leg pain ICD Code: M79.606 - Pain in leg, unspecified Assessment and Plan 1) COPD exacerbation. Improving Ct Nebs, IV abx, steroids, O2. Switch to by mouth steroids (2) Pneumonia Continue IV rocephin and azithromycin started April 09, bronchodilators and follow sputum culture with normal velma. Switch to by mouth antibiotics CT of the chest consistent with atypical pneumonia ? vascular congestion on my review legionella pending influenza neg (3) Systolic heart failure Echo returned with new Systolic dysfunction and severe MR. Continue diuresis if tolerated Medial management with limitations due to Hypotension (needs to be on beta morteza and BEBE inhibitor) Cardiology recommends stress test when patient has recovered from pneumonia (4) Leg pain better with APA which we will Rx Acute vs CKD stage 3. Improving avoid nephrotoxins DVT prophylaxis with Lovenox Problem Qualifiers (1) Pneumonia: Qualified Codes: J18.9 - Pneumonia, unspecified organism Jamison Tucker MD Apr 11, 2017 12:15
[2017-04-11] MEDS: ENOXAPARIN SODIUM 40 MG/0.4 ML SYRINGE SQ SCH (12:42)
[2017-04-11] MEDS: predniSONE 20 MG TAB PO SCH (14:11)
[2017-04-11] MEDS: BENZONATATE 100 MG CAP PO PRN ×2 (16:34→21:53)
[2017-04-11] MEDS ORDERED: FURO20TA PO (17:48)
[2017-04-11] MEDS ORDERED: CEFU1TAB20 PO (17:48)
--- NOTE | 2017-04-11 17:48 | HHI.DCPOC ---
Discharge Care Plan Diagnosis: (1) COPD exacerbation (2) Systolic heart failure Your Health Problems Are: Difficulty with ADL Exercise Tolerance Goals to Promote Your Health * To prevent worsening of your condition and complications * To maintain your health at the optimal level Directions to Meet Your Goals Take your medications as prescribed Follow your dietary instruction Follow activity as directed Keep your appointments as scheduled Take your immunizations and boosters as scheduled If your symptoms worsen call your PCP, if no PCP go to Urgent Care Center or Emergency Room Smoking is Dangerous to Your Health. Avoid second hand smoke Call the 24-hour hour crisis hotline for domestic abuse at Jamison Tucker MD Apr 11, 2017 17:48
[2017-04-11] MEDS: ZOLPIDEM TARTRATE 10 MG TAB PO PRN (21:53)
[2017-04-12] VITALS (7 sets, daily range): BP systolic 102–121; BP diastolic 62–76; PULSE 69–91; RESP 16–19; TEMP 96–97.9; O2SAT 92–96
[2017-04-12] MEDS: ACETAMINOPHEN 325 MG TAB PO PRN ×3 (01:40→23:00)
[2017-04-12] MEDS: RESP: ALBUTEROL 2.5 MG/IPRATROPIUM 0.5 MG NEB (SCH) INH ×4 (03:37→21:13)
[2017-04-12] MEDS: BENZONATATE 100 MG CAP PO PRN ×3 (03:42→22:32)
[2017-04-12] MEDS: LEVOTHYROXINE SODIUM 88 MCG TAB PO SCH (05:40)
--- NOTE | 2017-04-12 06:31 | PD.CARD.PN ---
Subjective Subjective Remarks The chart was reviewed. The patient has moderate shortness of breath. She denies any chest pain, GI symptoms, bleeding. Telemetry reveals sinus rhythm with short atrial runs. Objective Medications Reviewed Vital Signs / I&O Vital Signs Date Time Temp Pulse Resp B/P (MAP) Pulse Ox O2 Delivery O2 Flow Rate FiO2 04/12/17 00:00 97.2 81 16 121/76 (91) 92 04/11/17 23:00 78 04/11/17 21:46 95 21 04/11/17 20:00 97.5 75 22 116/70 (85) 96 04/11/17 16:00 97.0 76 17 91/66 (74) 94 04/11/17 12:00 97.8 78 16 96/71 (79) 98 04/11/17 10:59 96 Nasal Cannula 2.00 04/11/17 08:00 93 04/11/17 08:00 97.6 81 17 104/65 (78) 97 I/O 04/11/17 04/11/17 04/11/17 04/12/17 04/12/17 04/12/17 07:00 15:00 23:00 07:00 15:00 23:00 Intake Total 60 ml 760 ml 240 ml Balance 60 ml 760 ml 240 ml Intake Oral 60 ml 410 ml 240 ml IV Total 350 ml # Voids 1 2 # Bowel Movements 0 0 Physical Exam GENERAL: Well-nourished, well-developed patient in no apparent distress. SKIN: Warm and dry. NECK: JVD normal - less than or equal to 5 cm H20. CARDIOVASCULAR: Regular rate and rhythm without murmurs, gallops, or rubs. RESPIRATORY: Decreased breath sounds - equal bilaterally. No accessory muscle use. No wheezes, rales or rubs. PERIPHERY: No cyanosis, or edema. Laboratory Reviewed Imaging Reviewed Assessment and Plan Assessment and Plan Problems: COPD with possible multi lobar pneumonia Mild congestive heart failure Cardiomyopathy with severe mitral regurgitation Hypothyroidism Coronary artery disease with calcification on CT Recommendations: Blood pressure too low for BEBE inhibitors or beta blockers Diuresis Antibiotics and pulmonary per primary service DVT prophylaxis We'll order lipid profile and start patient on statins and aspirin. Please call us when the patient stabilizes. She may well benefit from further workup including catheterization. We will be available over the weekend as needed. Arnie Merino MD Apr 12, 2017 06:31
[2017-04-12 07:23] LABS: POTASSIUM 4.1 MEQ/L (3.5-5.1)
[2017-04-12 07:28] LABS: BICARBONATE 28.5 MEQ/L (21.0-32.0); MAGNESIUM 2.6 MG/DL (1.5-2.5)
[2017-04-12] MEDS: DICYCLOMINE HCL 10 MG CAP PO SCH ×2 (08:38→20:14)
[2017-04-12] MEDS: AZITHROMYCIN 250 MG TAB PO SCH (08:38)
[2017-04-12] MEDS: FUROSEMIDE 20 MG TAB PO SCH (08:38)
[2017-04-12] MEDS: POTASSIUM CHLORIDE 10 MEQ CONTROLLED RELEASE TAB PO SCH (08:38)
[2017-04-12] MEDS: ASPIRIN EC 81 MG TABEC PO SCH (08:38)
[2017-04-12] MEDS: CEFUROXIME AXETIL 500 MG TAB PO SCH ×2 (08:38→20:14)
[2017-04-12] MEDS: DOCUSATE SODIUM 50 MG/SENNA 8.6 MG TAB PO SCH ×2 (08:39→20:14)
[2017-04-12] MEDS: ATORVASTATIN 20 MG TAB PO SCH (08:39)
[2017-04-12] MEDS: SODIUM CHLORIDE 0.9% FLUSH 10 ML FLUSH IV FLUSH SCH ×2 (08:39→20:16)
[2017-04-12] MEDS: predniSONE 20 MG TAB PO SCH (08:39)
[2017-04-12] MEDS ORDERED: ATOR20TA15 PO (09:29)
[2017-04-12] MEDS ORDERED: ASPI-99 PO (09:29)
[2017-04-12 09:51] LABS: HDL CHOLESTEROL 42.7 MG/DL (40.0-60.0)
--- NOTE | 2017-04-12 11:38 | HHI.PR ---
Subjective Remarks Follow-up heart failure and pneumonia. Improving shortness of breath but still limited activity just ambulating to the restroom. Also complains of difficulty sleeping current meds not helping. Objective Vitals Vital Signs Date Time Temp Pulse Resp B/P (MAP) Pulse Ox O2 Delivery O2 Flow Rate FiO2 04/12/17 09:53 95 21 04/12/17 08:15 97.5 77 19 117/76 (90) 94 04/12/17 00:00 97.2 81 16 121/76 (91) 92 04/11/17 23:00 78 04/11/17 21:46 95 21 04/11/17 20:00 97.5 75 22 116/70 (85) 96 04/11/17 16:00 97.0 76 17 91/66 (74) 94 04/11/17 12:00 97.8 78 16 96/71 (79) 98 I/O 04/11/17 04/11/17 04/11/17 04/12/17 04/12/17 04/12/17 07:00 15:00 23:00 07:00 15:00 23:00 Intake Total 60 ml 760 ml 240 ml Balance 60 ml 760 ml 240 ml Intake Oral 60 ml 410 ml 240 ml IV Total 350 ml # Voids 1 2 # Bowel Movements 0 0 Result Diagram: 04/09/17 1135 04/12/17 0520 Objective Remarks Well-developed, well-nourished in no distress on room air No JVD supple neck Regular rate and rhythm Equal in expansion decreased breath sounds Abdomen soft nontender Extremities no cyanosis with pitting edema Alert and oriented nonfocal Physical exam no significant change from previous Procedures None A/P Problem List: (1) COPD exacerbation ICD Code: J44.1 - Chronic obstructive pulmonary disease with (acute) exacerbation Status: Acute (2) Pneumonia ICD Code: J18.9 - Pneumonia, unspecified organism Status: Acute (3) Systolic heart failure ICD Code: I50.20 - Unspecified systolic (congestive) heart failure Status: Acute (4) Leg pain ICD Code: M79.606 - Pain in leg, unspecified Assessment and Plan 1) COPD exacerbation. Improving Ct Nebs, abx, steroids, O2. (2) Pneumonia. Improving Continue Ceftin and Zithromax started April 09, bronchodilators and follow sputum culture with normal velma. CT of the chest consistent with atypical pneumonia ? vascular congestion on my review legionella pending influenza neg (3) Systolic heart failure Echo returned with new Systolic dysfunction and severe MR. Continue diuresis if tolerated Medial management with limitations due to Hypotension (needs to be on beta morteza and BEBE inhibitor) Cardiology recommends stress test when patient has recovered from pneumonia. Not stable to undergo stress test today. Patient has coronary calcification and has been started on aspirin and statin follow-up lipid profile (4) Leg pain better with APA which we will Rx Acute vs CKD stage 3. Improving avoid nephrotoxins DVT prophylaxis with Lovenox Discharge Planning Needs to have stress test prior to discharge Problem Qualifiers (1) Pneumonia: Qualified Codes: J18.9 - Pneumonia, unspecified organism Jamison Tucker MD Apr 12, 2017 11:38
[2017-04-12] MEDS: ENOXAPARIN SODIUM 40 MG/0.4 ML SYRINGE SQ SCH (12:07)
[2017-04-12] MEDS: TEMAZEPAM 15 MG CAP PO PRN (22:25)
[2017-04-13] VITALS (11 sets, daily range): BP systolic 100–142; BP diastolic 64–86; PULSE 74–92; RESP 16–22; TEMP 95.9–97.8; O2SAT 93–97
[2017-04-13] MEDS: RESP: ALBUTEROL 2.5 MG/IPRATROPIUM 0.5 MG NEB (SCH) INH ×4 (04:21→20:58)
[2017-04-13] MEDS: LEVOTHYROXINE SODIUM 88 MCG TAB PO SCH (05:41)
[2017-04-13] MEDS: DIPHENOXYLATE/ATROPINE 2.5 MG/0.025 MG TAB PO PRN (09:00)
[2017-04-13] MEDS: CEFUROXIME AXETIL 500 MG TAB PO SCH ×2 (09:00→20:29)
[2017-04-13] MEDS: SODIUM CHLORIDE 0.9% FLUSH 10 ML FLUSH IV FLUSH SCH ×2 (09:00→20:29)
[2017-04-13] MEDS: ATORVASTATIN 20 MG TAB PO SCH (09:00)
[2017-04-13] MEDS: DOCUSATE SODIUM 50 MG/SENNA 8.6 MG TAB PO SCH ×2 (09:00→20:29)
[2017-04-13] MEDS: AZITHROMYCIN 250 MG TAB PO SCH (09:00)
[2017-04-13] MEDS: BENZONATATE 100 MG CAP PO PRN ×2 (09:00→22:14)
[2017-04-13] MEDS: DICYCLOMINE HCL 10 MG CAP PO SCH ×2 (09:00→20:29)
[2017-04-13] MEDS: POTASSIUM CHLORIDE 10 MEQ CONTROLLED RELEASE TAB PO SCH (09:01)
[2017-04-13] MEDS: FUROSEMIDE 20 MG TAB PO SCH (09:01)
[2017-04-13] MEDS: predniSONE 20 MG TAB PO SCH (09:01)
[2017-04-13] MEDS: ACETAMINOPHEN 325 MG TAB PO PRN ×2 (09:02→20:29)
[2017-04-13] MEDS: ASPIRIN EC 81 MG TABEC PO SCH (09:02)
[2017-04-13] MEDS ORDERED: ALBUTEROL SULFATE 90 MCG/ACT HFA 8 GM INHALER INH PRN (11:45)
--- NOTE | 2017-04-13 11:47 | HHI.PR ---
Subjective Remarks Follow-up pneumonia and heart failure. Improving shortness of breath but still with limited activity. Encouraged to ambulate hallway. She does not want to leave until she has the stress test. Develops hoarseness when she has respiratory infection. Discussed with RN Objective Vitals Vital Signs Date Time Temp Pulse Resp B/P (MAP) Pulse Ox O2 Delivery O2 Flow Rate FiO2 04/13/17 09:13 95 04/13/17 08:00 95.9 86 22 142/86 (104) 95 04/13/17 04:00 97.8 76 16 121/76 (91) 94 04/13/17 00:00 97.3 86 16 116/69 (85) 97 04/12/17 21:15 95 21 04/12/17 20:00 97.9 81 16 106/68 (81) 96 04/12/17 20:00 88 04/12/17 17:22 96.0 69 19 102/72 (82) 94 04/12/17 12:12 96.9 91 19 106/62 (77) 92 I/O 04/12/17 04/12/17 04/12/17 04/13/17 04/13/17 04/13/17 06:59 14:59 22:59 06:59 14:59 22:59 Intake Total 240 ml 650 ml Balance 240 ml 650 ml Intake Oral 240 ml 650 ml # Voids 2 4 # Bowel Movements 0 1 Result Diagram: 04/09/17 1135 04/12/17 0520 Imaging Last Impressions Chest CT 04/09/17 0000 Signed Impressions: Service Date/Time: Sunday, April 09, 2017 11:14 - CONCLUSION: 1. Scattered bilateral bilobar ground glass opacities concerning for multilobar pneumonia or atypical pneumonia (PCP, CMV, RSV) in the appropriate clinical setting. Differential considerations include acute interstitial pneumonia, developing pulmonary edema, developing ARDS, hypersensitivity pneumonitis and adenocarcinoma in situ amongst other etiologies. Followup to resolution is recommended. 2. Trace right pleural effusion. 3. Trace pericardial effusion. 4. Moderate coronary artery cavitations. Abel Frankel MD Chest X-Ray 04/08/17 0843 Signed Impressions: Service Date/Time: Saturday, April 08, 2017 09:14 - CONCLUSION: Bibasilar densities. Cardiomegaly. Robson Rodriguez MD Objective Remarks Well-developed, well-nourished in no distress on room air No JVD supple neck Regular rate and rhythm Equal in expansion decreased breath sounds Abdomen soft nontender Extremities no cyanosis with pitting edema Alert and oriented nonfocal Procedures None A/P Problem List: (1) COPD exacerbation ICD Code: J44.1 - Chronic obstructive pulmonary disease with (acute) exacerbation Status: Acute (2) Pneumonia ICD Code: J18.9 - Pneumonia, unspecified organism Status: Acute (3) Systolic heart failure ICD Code: I50.20 - Unspecified systolic (congestive) heart failure Status: Acute (4) Leg pain ICD Code: M79.606 - Pain in leg, unspecified Assessment and Plan 1) COPD exacerbation. Improving on room air Ct Nebs, abx, steroids and O2. (2) Pneumonia. Improving Continue Ceftin and Zithromax started April 09, bronchodilators and follow sputum culture with normal velma. CT of the chest consistent with atypical pneumonia ? vascular congestion on my review influenza neg (3) Systolic heart failure Echo returned with new Systolic dysfunction and severe MR. Continue diuresis if tolerated Medial management with limitations due to Hypotension (needs to be on beta morteza and BEBE inhibitor) Cardiology recommends stress test when patient has recovered from pneumonia. Patient has coronary calcification and has been started on aspirin and statin LDL 78. Patient increase activity today if she is tolerating ambulation in the hallway with alert cardiology to proceed with stress test. Discussed with RN (4) Leg pain better with APA which we will Rx Acute vs CKD stage 3. Improving avoid nephrotoxins DVT prophylaxis with Lovenox Discharge Planning Needs to have stress test prior to discharge Problem Qualifiers (1) Pneumonia: Qualified Codes: J18.9 - Pneumonia, unspecified organism Jamison Tucker MD Apr 13, 2017 11:47
[2017-04-13] MEDS ORDERED: PRED20 PO (11:48)
--- NOTE | 2017-04-13 11:49 | HHI.FF ---
Face to Face Verification Diagnosis: (1) COPD exacerbation (2) Systolic heart failure (3) Pneumonia Physical Therapy Order: Evaluate and Treat, Improve ambulation, Strength and gait training Home Health Nursing Order: Medical education Medication education-adverse effect Nursing assessment with vital signs I have seen patient Sofía Wilkins on 04/13/17. My clinical findings support the need for the requested home health care services because: Patient has SOB I certify that my clinical findings support that this patient is homebound because: Hx COPD- exertion dyspnea/weakness Unsafe to leave home unassisted Jamison Tucker MD Apr 13, 2017 11:49
[2017-04-13] MEDS: ENOXAPARIN SODIUM 40 MG/0.4 ML SYRINGE SQ SCH (13:13)
[2017-04-13] MEDS: TEMAZEPAM 15 MG CAP PO PRN (22:14)
[2017-04-14] VITALS (11 sets, daily range): BP systolic 92–121; BP diastolic 60–81; PULSE 81–97; RESP 20–24; TEMP 96.7–98.6; O2SAT 93–96
[2017-04-14] MEDS: RESP: ALBUTEROL 2.5 MG/IPRATROPIUM 0.5 MG NEB (SCH) INH ×3 (03:46→21:12)
[2017-04-14] MEDS: LEVOTHYROXINE SODIUM 88 MCG TAB PO SCH (05:16)
[2017-04-14 08:11] LABS: POTASSIUM 3.6 MEQ/L (3.5-5.1)
[2017-04-14 08:18] LABS: BICARBONATE 30.2 MEQ/L (21.0-32.0); MAGNESIUM 2.4 MG/DL (1.5-2.5)
[2017-04-14] MEDS: SODIUM CHLORIDE 0.9% FLUSH 10 ML FLUSH IV FLUSH SCH ×2 (08:24→20:19)
[2017-04-14] MEDS: BENZONATATE 100 MG CAP PO PRN ×2 (08:25→22:11)
[2017-04-14] MEDS: DIPHENOXYLATE/ATROPINE 2.5 MG/0.025 MG TAB PO PRN (08:25)
[2017-04-14] MEDS: CEFUROXIME AXETIL 500 MG TAB PO SCH ×2 (08:26→20:18)
[2017-04-14] MEDS: predniSONE 20 MG TAB PO SCH (08:26)
[2017-04-14] MEDS: FUROSEMIDE 20 MG TAB PO SCH (08:26)
[2017-04-14] MEDS: DICYCLOMINE HCL 10 MG CAP PO SCH ×2 (08:27→20:18)
[2017-04-14] MEDS ORDERED: POTA-243 PO (08:27)
[2017-04-14] MEDS: ATORVASTATIN 20 MG TAB PO SCH (08:27)
[2017-04-14] MEDS: ASPIRIN EC 81 MG TABEC PO SCH (08:27)
[2017-04-14] MEDS: DOCUSATE SODIUM 50 MG/SENNA 8.6 MG TAB PO SCH ×2 (08:31→20:18)
[2017-04-14] MEDS: POTASSIUM CHLORIDE 20 MEQ CONTROLLED RELEASE TAB PO SCH (08:42)
--- NOTE | 2017-04-14 11:25 | HHI.PR ---
Subjective Remarks Follow-up pneumonia and heart failure. Improving exercise tolerance and shortness of breath. She now agrees to have stress test outpatient if cleared by cardiology for discharge but wants to stay another night. Discussed with RN who will contact cardiology in the morning Objective Vitals Vital Signs Date Time Temp Pulse Resp B/P (MAP) Pulse Ox O2 Delivery O2 Flow Rate FiO2 04/14/17 09:37 95 21 04/14/17 08:01 92 04/14/17 08:00 98.1 84 24 115/72 (86) 93 04/14/17 04:00 97.2 81 20 119/71 (87) 96 04/14/17 00:00 96.7 84 20 99/66 (77) 95 04/13/17 23:00 87 04/13/17 20:58 95 21 04/13/17 20:00 96.1 82 22 112/72 (85) 94 04/13/17 16:25 90 04/13/17 16:00 96.2 92 20 102/69 (80) 95 04/13/17 12:00 97.0 86 21 100/64 (76) 93 I/O 04/13/17 04/13/17 04/13/17 04/14/17 04/14/17 04/14/17 07:00 15:00 23:00 07:00 15:00 23:00 Intake Total 800 ml 240 ml 240 ml Balance 800 ml 240 ml 240 ml Intake Oral 800 ml 240 ml 240 ml # Voids 4 3 2 # Bowel Movements 0 0 0 Result Diagram: 04/14/17 0640 Objective Remarks Well-developed, well-nourished in no distress on room air No JVD supple neck Regular rate and rhythm Equal in expansion decreased breath sounds Abdomen soft nontender Extremities no cyanosis with improving pitting edema Alert and oriented nonfocal No significant change in physical exam from previous Procedures None A/P Problem List: (1) COPD exacerbation ICD Code: J44.1 - Chronic obstructive pulmonary disease with (acute) exacerbation Status: Acute (2) Pneumonia ICD Code: J18.9 - Pneumonia, unspecified organism Status: Acute (3) Systolic heart failure ICD Code: I50.20 - Unspecified systolic (congestive) heart failure Status: Acute (4) Leg pain ICD Code: M79.606 - Pain in leg, unspecified Assessment and Plan 1) COPD exacerbation. Improving on room air Ct Nebs, abx, steroids and O2. (2) Pneumonia. Improving Continue Ceftin started April 09, bronchodilators and follow sputum culture with normal velma. Status post Zithromax CT of the chest consistent with atypical pneumonia ? vascular congestion on my review influenza neg (3) Systolic heart failure Echo returned with new Systolic dysfunction and severe MR. Continue diuresis if tolerated Medial management with limitations due to Hypotension (needs to be on beta morteza and BEBE inhibitor) Cardiology recommends stress test when patient has recovered from pneumonia. Patient has coronary calcification and has been started on aspirin and statin LDL 78. She now agrees to have stress test outpatient if cleared by cardiology for discharge but wants to stay another night. Discussed with RN who will contact cardiology in the morning (4) Leg pain better with APA which we will Rx Acute vs CKD stage 3. Improving avoid nephrotoxins DVT prophylaxis with Lovenox Discharge Planning Discharge when cleared by cardiology Problem Qualifiers (1) Pneumonia: Qualified Codes: J18.9 - Pneumonia, unspecified organism Jamison Tucker MD Apr 14, 2017 11:25
[2017-04-14] MEDS: ENOXAPARIN SODIUM 40 MG/0.4 ML SYRINGE SQ SCH (12:35)
[2017-04-14] MEDS: ACETAMINOPHEN 325 MG TAB PO PRN (21:20)
[2017-04-14] MEDS: TEMAZEPAM 15 MG CAP PO PRN (22:11)
[2017-04-15] VITALS: BP 121/71; PULSE 85; RESP 20; TEMP 97.4; O2SAT 97
[2017-04-15] MEDS: RESP: ALBUTEROL 2.5 MG/IPRATROPIUM 0.5 MG NEB (SCH) INH ×2 (03:34→11:04)
[2017-04-15 04:00] VITALS: BP 120/82; PULSE 81; RESP 18; TEMP 97; O2SAT 94
[2017-04-15] MEDS: LEVOTHYROXINE SODIUM 88 MCG TAB PO SCH (05:07)
[2017-04-15 08:17] VITALS: BP 128/78; PULSE 82; RESP 19; TEMP 98.3; O2SAT 97
[2017-04-15] MEDS: predniSONE 20 MG TAB PO SCH (08:44)
[2017-04-15] MEDS: ATORVASTATIN 20 MG TAB PO SCH (08:45)
[2017-04-15] MEDS: DOCUSATE SODIUM 50 MG/SENNA 8.6 MG TAB PO SCH (08:45)
[2017-04-15] MEDS: ASPIRIN EC 81 MG TABEC PO SCH (08:45)
[2017-04-15] MEDS: DICYCLOMINE HCL 10 MG CAP PO SCH (08:45)
[2017-04-15] MEDS: CEFUROXIME AXETIL 500 MG TAB PO SCH (08:45)
[2017-04-15] MEDS: FUROSEMIDE 20 MG TAB PO SCH (08:45)
[2017-04-15] MEDS: SODIUM CHLORIDE 0.9% FLUSH 10 ML FLUSH IV FLUSH SCH (08:45)
[2017-04-15] MEDS: POTASSIUM CHLORIDE 20 MEQ CONTROLLED RELEASE TAB PO SCH (08:45)
[2017-04-15 11:06] VITALS: O2SAT 93
--- NOTE | 2017-04-15 11:12 | HHI.PR ---
Subjective Remarks Follow-up heart failure and pneumonia. Improving dyspnea and exercise tolerance. Tolerating room air. Discussed with on-call cardiology who will touch base with patient's assistant regarding timing of ischemic workup. Objective Vitals Vital Signs Date Time Temp Pulse Resp B/P (MAP) Pulse Ox O2 Delivery O2 Flow Rate FiO2 04/15/17 11:06 93 21 04/15/17 08:17 98.3 82 19 128/78 (95) 97 04/15/17 04:00 97.0 81 18 120/82 (95) 94 04/15/17 00:00 97.4 85 20 121/71 (88) 97 04/14/17 23:00 97 04/14/17 21:13 93 21 04/14/17 20:00 97.0 87 20 115/76 (89) 95 04/14/17 15:35 98.6 84 24 121/81 (94) 95 04/14/17 15:01 90 04/14/17 12:00 98.6 92 24 92/60 (71) 94 I/O 04/14/17 04/14/17 04/14/17 04/15/17 04/15/17 04/15/17 07:00 15:00 23:00 07:00 15:00 23:00 Intake Total 240 ml 1440 ml 240 ml 480 ml Output Total 2 ml Balance 240 ml 1440 ml 240 ml 478 ml Intake Oral 240 ml 1440 ml 240 ml 480 ml Output Urine Total 2 ml # Voids 2 2 3 # Bowel Movements 0 1 1 0 Result Diagram: 04/14/17 0640 Objective Remarks Well-developed, well-nourished in no distress on room air No JVD supple neck Regular rate and rhythm Equal in expansion decreased breath sounds Abdomen soft nontender Extremities no cyanosis with improving pitting edema Alert and oriented nonfocal Procedures None A/P Problem List: (1) COPD exacerbation ICD Code: J44.1 - Chronic obstructive pulmonary disease with (acute) exacerbation Status: Acute (2) Pneumonia ICD Code: J18.9 - Pneumonia, unspecified organism Status: Acute (3) Systolic heart failure ICD Code: I50.20 - Unspecified systolic (congestive) heart failure Status: Acute (4) Leg pain ICD Code: M79.606 - Pain in leg, unspecified Assessment and Plan 1) COPD exacerbation. Improving on room air Ct Nebs, abx, steroids and O2. (2) Pneumonia. Improving Continue Ceftin started April 09 total 2 weeks, bronchodilators and follow sputum culture with normal velma. Status post Zithromax CT of the chest consistent with atypical pneumonia ? vascular congestion on my review influenza neg (3) Systolic heart failure Echo returned with new Systolic dysfunction and severe MR. Continue diuresis if tolerated Medial management with limitations due to Hypotension (needs to be on beta morteza and BEBE inhibitor) Cardiology recommends stress test when patient has recovered from pneumonia. Patient has coronary calcification and has been started on aspirin and statin LDL 78. She now agrees to have stress test outpatient if cleared by cardiology for discharge. Awaiting cardiology's recommendation (4) Leg pain better with APA which we will Rx Acute vs CKD stage 3. Improving avoid nephrotoxins DVT prophylaxis with Lovenox Discharge Planning Discharge when cleared by cardiology Problem Qualifiers (1) Pneumonia: Qualified Codes: J18.9 - Pneumonia, unspecified organism Jamison Tucker MD Apr 15, 2017 11:12
--- NOTE | 2017-04-15 11:35 | HHI.DS ---
Discharge Summary Admission Date Apr 08, 2017 at 10:31 Discharge Date: Apr 15, 2017 Admitting Diagnosis pneumonia, COPD exacerbation (1) COPD exacerbation ICD Code: J44.1 - Chronic obstructive pulmonary disease with (acute) exacerbation Diagnosis: Principal Status: Acute (2) Pneumonia ICD Code: J18.9 - Pneumonia, unspecified organism Status: Acute (3) Systolic heart failure ICD Code: I50.20 - Unspecified systolic (congestive) heart failure Diagnosis: Principal Status: Acute (4) Leg pain ICD Code: M79.606 - Pain in leg, unspecified Diagnosis: Secondary Procedures None Brief History - From Admission Patient is a very pleasant 82-year-old female with a known history of COPD who has had about a week of increased shortness of breath, productive cough and malaise. She called her primary doctor who gave her some antibiotics and she took them for the last 3 days. She notes increased work of breathing and dyspnea on exertion. She also complaining of insomnia for the last couple days. She does not have orthopnea by history and denies any edema. Patient's x -ray on my review does show some bilateral patchiness which coincides with the patient's clinical symptoms of pneumonia. Patient has been tachycardic and tachypneic with low-grade temperature in the emergency room. She had some improvement with nebulizer here as well as of IV steroids given in the emergency room. Patient's been admitted to the hospital due to exacerbation of COPD and possible early pneumonia. CBC/BMP: 04/14/17 0640 Significant Findings Laboratory Tests Test 04/14/17 06:40 Blood Urea Nitrogen 26 MG/DL (7-18) Calcium Level 7.8 MG/DL (8.5-10.1) Estimat Glomerular Filtration Rate 67 ML/MIN (>89) Imaging Last Impressions Chest CT 04/09/17 0000 Signed Impressions: Service Date/Time: Sunday, April 09, 2017 11:14 - CONCLUSION: 1. Scattered bilateral bilobar ground glass opacities concerning for multilobar pneumonia or atypical pneumonia (PCP, CMV, RSV) in the appropriate clinical setting. Differential considerations include acute interstitial pneumonia, developing pulmonary edema, developing ARDS, hypersensitivity pneumonitis and adenocarcinoma in situ amongst other etiologies. Followup to resolution is recommended. 2. Trace right pleural effusion. 3. Trace pericardial effusion. 4. Moderate coronary artery cavitations. Abel Frankel MD Chest X-Ray 04/08/17 0843 Signed Impressions: Service Date/Time: Saturday, April 08, 2017 09:14 - CONCLUSION: Bibasilar densities. Cardiomegaly. Robson Rodriguez MD PE at Discharge Well-developed, well-nourished in no distress on room air No JVD supple neck Regular rate and rhythm Equal in expansion decreased breath sounds Abdomen soft nontender Extremities no cyanosis with improving pitting edema Alert and oriented nonfocal Hospital Course 1) COPD exacerbation. Improving on room air Ct Nebs, abx, steroids and O2. (2) Pneumonia. Improving Continue Ceftin started April 09 total 2 weeks, bronchodilators and follow sputum culture with normal velma. Status post Zithromax CT of the chest consistent with atypical pneumonia ? vascular congestion on my review influenza neg (3) Systolic heart failure Echo returned with new Systolic dysfunction and severe MR. Continue diuresis if tolerated Medial management with limitations due to Hypotension (needs to be on beta morteza and BEBE inhibitor) Cardiology recommends stress test when patient has recovered from pneumonia. Patient has coronary calcification and has been started on aspirin and statin LDL 78. She now agrees to have stress test outpatient. She has been cleared by cardiology for discharge. (4) Leg pain better with APA which we will Rx Acute vs CKD stage 3. Improving avoid nephrotoxins DVT prophylaxis with Lovenox Pt Condition on Discharge: Stable Discharge Disposition: Disch w/ Home Health Serv Discharge Time: > 30 minutes Discharge Instructions DIET: Follow Instructions for: Heart Healthy Diet Activities you can perform: Regular-No Restrictions Activities to Avoid: Driving Follow up Referrals: Cardiology - [address] Suly Nguyen PCP Follow-up - 2-3 Days New Orders: X-RAY CHEST PA & LAT - 6 Weeks New Medications: Aspirin (Adult Aspirin EC Low Strength) 81 Mg Tabec 162 MG PO DAILY for Prevent Blood Clot, #30 TAB Atorvastatin (Atorvastatin) 20 Mg Tab 20 MG PO DAILY for Cholesterol Management, #30 TAB Cefuroxime (Cefuroxime) 500 Mg Tab 500 MG PO Q12HR for Infection, #20 TAB Stop date 04/23/17 Furosemide (Furosemide) 20 Mg Tab 20 MG PO DAILY for Prevent Heart Failure, #30 TAB Potassium Chloride ER (Klor-Con 10) 10 Meq Tab 20 MEQ PO DAILY for Electrolyte Replacement, #60 TAB Prednisone (Prednisone) 20 Mg Tab 40 MG PO DAILY for Control Inflammation, #4 TAB last dose 04/15 Continued Medications: Albuterol Neb (Albuterol Neb) Unknown Strength Neb Unknown Dose NEB QID NEB PRN for WHEEZING, #125 NEBULE 0 Refills Atorvastatin (Lipitor) 10 Mg Tab 10 MG PO HS for Cholesterol Management, #30 TAB 0 Refills Calcium Carbonate-Cholecalciferol (Calcium 600 with Vitamin D) 600-400 mg-Unit Tab 1 TAB PO DAILY for Calcium Supplement, TAB 0 Refills Dicyclomine (Dicyclomine) 10 Mg Cap 10 MG PO BID for Bowel Management, CAP 0 Refills Diphenoxylate-Atropine (Lomotil) 2.5-0.025 Mg Tab 1 TAB PO DAILY PRN for DIARRHEA, TAB 0 Refills Fluticasone-Salmeterol Inh (Advair Diskus Inh) 100-50 Mcg/Blist Aer 1 PUFF INH BID for Asthma Management, #1 INHALER 0 Refills Rinse mouth after use. Glucosamine (Glucosamine) Unknown Strength Cap Unknown Dose PO DAILY for Herbal Supplements, CAP 0 Refills Ibuprofen-Diphenhydramine (Advil Pm) 200-38 Mg Tab 1 TAB PO HS PRN for PAIN/SLEEP, TAB 0 Refills Levothyroxine (Synthroid) 88 Mcg Tab 88 MCG PO DAILY for Thyroid, #30 TAB 0 Refills Multiple Vitamin (Multiple Vitamin) 1 Tab 1 TAB PO DAILY for Nutritional Supplement, TAB 0 Refills Discontinued Medications: Fluticasone-Salmeterol Inh (Advair Diskus Inh) 100-50 Mcg/Blist Aer 1 PUFF INH BID for Asthma Management, #1 INHALER 0 Refills Rinse mouth after use. Levofloxacin (Levaquin) 750 Mg Tablet 1 TAB PO DAILY Jamison Tucker MD Apr 15, 2017 11:35
[2017-04-15 12:54] VITALS: BP 109/73; PULSE 72; RESP 19; TEMP 96.3; O2SAT 92
== END 2017-04-15 13:21 | disposition home health service (06) | DRG 190 ==
LOC: PHED 08:34 → PHEDA 10:31 → PH3B 12:27
PROVIDERS: ADMIT Internal Medicine; ATTEND Internal Medicine
DX: J44.0 Chronic obstructive pulmonary disease with (acute) lower respiratory infection (principal); J18.9 Pneumonia, unspecified organism; I95.9 Hypotension, unspecified; I42.9 Cardiomyopathy, unspecified; E86.0 Dehydration; I50.20 Unspecified systolic (congestive) heart failure; I34.0 Nonrheumatic mitral (valve) insufficiency; J44.1 Chronic obstructive pulmonary disease with (acute) exacerbation; E78.5 Hyperlipidemia, unspecified; E03.9 Hypothyroidism, unspecified; I25.10 Atherosclerotic heart disease of native coronary artery without angina pectoris; N28.9 Disorder of kidney and ureter, unspecified; G47.00 Insomnia, unspecified; M25.50 Pain in unspecified joint; M79.606 Pain in leg, unspecified
CPT/HCPCS: 36600; 71010; 71250; 80048; 80053; 80061; 82550; 82552; 82805; 83735; 83880; 84484; 85025; 85610; 85730; 87040; 87070; 87205; 87449; 87804; 93005; 93306; 94640; 94664; 96365; 96375; J0456; J0696; J1650; J1940; J2920; J2930; J7050; J7512

== ENCOUNTER 2017-08-21 05:48 | Day surgery (SDC) | payer OTHER ==
[~2017-08-21] VITALS: Ht 152.4 cm; Wt 56.3 kg
[2017-08-21] VITALS (8 sets, daily range): BP systolic 89–118; BP diastolic 49–72; PULSE 62–84; RESP 18–20; TEMP 97.7–98.4; O2SAT 94–99
[~2017-08-21 05:48] MED LIST: ADVA100A INH; ADVI200T17 PO; ALBU0.63 NEB; ASPI1TAB56 PO; ATOR20TA15 PO; CALC1TAB87 PO; CEFU1TAB20 PO; DICY10CA12 PO; FURO20TA PO; GLUC500C5 PO; KLOR10TA PO; LIPI10TA PO; LOMO2.5T PO; MULTTAB67 PO; PRED20 PO; SYNT88TA PO
[2017-08-21] MEDS ORDERED: CHLORHEXIDINE GLUCONATE 2 % 1 PACK (2 CLOTHS) TOPICAL PRN (06:15)
[2017-08-21] MEDS ORDERED: SODIUM CHLORID 0.9% 500 ML IV PRN (06:15)
[2017-08-21] MEDS ORDERED: POVIDONE IODINE 5% (ANTISEPSIS KIT) 4 APPLICATIONS EACH NARE PRN (06:15)
[2017-08-21] MEDS ORDERED: LACTATED RINGER'S 1000 ML IV PRN (06:15)
[2017-08-21] MEDS ORDERED: METOPROLOL TARTRATE 25 MG TAB PO PRN (06:15)
[2017-08-21] MEDS: SODIUM CHLORID 0.9% 500 ML INJ 500 ML IV SCH ×2 (06:30→23:10)
[2017-08-21] MEDS ORDERED: LORazepam 1 MG TAB SL SCH (06:30)
[2017-08-21] MEDS ORDERED: CARV6.252 PO (06:34)
[2017-08-21] MEDS ORDERED: LOMO2.5T PO (06:34)
[2017-08-21] MEDS ORDERED: SACU1TAB7 PO (06:34)
[2017-08-21] MEDS ORDERED: TRAZ50TA12 PO (06:34)
[2017-08-21 07:01] LABS: AUTOMATED NEUTROPHIL # 4.4 TH/MM3 (1.8-7.7); BASOPHIL % 0.4 % (0.0-2.0); EOSINOPHIL # 0.4 TH/MM3 (0-0.4); EOSINOPHIL % 6.3 % (0.0-4.0); HEMOGLOBIN 13.6 GM/DL (11.6-15.3); LYMPH % 9.9 % (9.0-44.0); LYMPHOCYTE # 0.6 TH/MM3 (1.0-4.8); MEAN CELL VOLUME 92.8 FL (80.0-100.0); MEAN CORPUSCULAR HEMOGLOBIN 31.4 PG (27.0-34.0); MEAN CORPUSCULAR HGB CONC 33.9 % (32.0-36.0); MEAN PLATELET VOLUME 9.3 FL (7.0-11.0); MONO % 12.1 % (0.0-8.0); MONOCYTE # 0.8 TH/MM3 (0-0.9); NEUT % 71.3 % (16.0-70.0); PLATELET COUNT 171 TH/MM3 (150-450); RED BLOOD COUNT 4.31 MIL/MM3 (4.00-5.30); RED CELL DISTRIBUTION WIDTH 13.5 % (11.6-17.2); WHITE BLOOD COUNT 6.2 TH/MM3 (4.0-11.0)
[2017-08-21 07:07] LABS: PROTHROMBIN TIME - PATIENT 9.9 SEC (9.8-11.6)
[2017-08-21 07:11] LABS: BICARBONATE 28.8 MEQ/L (21.0-32.0); CALCIUM 9.1 MG/DL (8.5-10.1); CREATININE 1.08 MG/DL (0.50-1.00)
[2017-08-21] MEDS ORDERED: DO NOT ADM ANY ANTICOAGULANT DRUGS PRN (07:30)
[2017-08-21] MEDS ORDERED: VANCOMYCIN 500 MG VIAL ONE (07:32)
[2017-08-21] MEDS ORDERED: LIDOCAINE HCL 2% 50 ML VIAL ONE (07:32)
[2017-08-21] MEDS ORDERED: HEPARIN-NS/PF INJ 1,000 ML ONE (07:32)
[2017-08-21] MEDS ORDERED: VANCOMYCIN HCL 1000 MG VIAL ONE (07:33)
[2017-08-21] MEDS ORDERED: ceFAZolin INJ 1,000 MG VIAL ONE (07:33)
--- NOTE | 2017-08-21 08:32 | CATHPROC ---
[facility] HIS Report Study Information Study Number Admission Scheduled Start Study Start [id number] Aug 21 2017 5:48AM 08/21/2017 Aug 21 2017 7:23AM [place] Service Cardiac Pacer/ICD Admit Source Facility Department Other [facility] - Textile Artist Physician and Clinical Staff Initial [address] Textile Supervisor Megan Sánchez,RT(R) TECH2 Other Anesthesia, COMMERCIAL DRAFTER Recorder Lynette Philip,RN Recorder Griselda Lynn,ALLISON Scrub Eloise Rodriguez,TEACHERS AIDE TECH2 Equipment Time Senior Front End Developer Description Size Mfg Part Number Used/Scraped [id number] 07:28 [employer] PACK, CCL CUSTOM * Used *[id number] 07:28 MEDLINE PACER DELANEY, LIMB * 2530 *[id number] Used [id number] 07:28 [employer] BLANKET,WARM AIR CCL * Used *[id number] 07:29 [employer] CATHETER, JSN, QUAD FR 5 Used *[id number] 07:29 [employer] CATHETER, JSN, QUAD FR 5 Used *[id number] 062820 07:29 [employer] CATHETER, JSN, QUAD FR 5 Used *[id number] 07:29 [employer] CATHETER, JSN, QUAD FR 5 Used *[id number] 144877 07:29 [employer] SHEATH, EPS, FR5 FAST CATH FR 5 Used *[id number] 096052 07:29 [employer] SHEATH, EPS, FR5 FAST CATH FR 5 Used *[id number] [id number] 07:29 [employer] SHEATH, EPS, FR5 FAST CATH FR 5 Used *[id number] 07:29 [employer] SHEATH, EPS, FR6 FAST CATH FR 6 Used *[id number] History: Allergies Allergy Reaction No Known Allergies History: Risk Factors Hypertension Dyslipidemia Yes Yes Chronic Lung Disease Labs Hgb (g/dl) Hct (%) RBC (MIL/MM3) WBC (l/cumm) Platelets (thousands) 11.60-17.00 35.00-51.00 4.00-5.90 4.00-11.00 150.00-450.00 13.0 40 4.3 6.2 171 Glucose (mg/dl) BUN (mg/dl) Creatinine (mg/dl) BUN:Creatinine (1:x) 74.00-106.00 7.00-18.00 0.50-1.30 10.00-20.00 77 15 1.0 15 Na (meq/l) K (meq/l) 136.00-145.00 3.50-5.10 138 3.6 INR (PTT:PT) 0.90-1.10 1 Medication Medication Total Dose (Bolus/Oral) Medication Total Dosage/Unit 1% XYLOCAINE 20 mL Medications (Bolus/Oral) Medication Time Given Dosage/Unit Administered By Reason 1% XYLOCAINE 08/21/2017 8:09:20 AM 20 mL Chastity Flores 20 mL 1% XYLOCAINE given in lab by Chastity Flores via Subcutaneous. Ordered by Chastity Flores. Medication (Drip) Medication Time Given Dosage/Unit Concentration/Unit Diluent (ml) Solution ANCEF 08/21/2017 7:48:09 AM 1 g 1 g ANCEF given in lab by Chastity Flores via Peripheral IV. Ordered by Chastity Flores. Reason: As per sobeida flores verbal order. VANCOMYCIN DRIP 08/21/2017 7:43:31 AM 1 g 1 g VANCOMYCIN DRIP given in lab by ROMEO Zamora via Peripheral IV. Ordered by Chastity Flores. Sydnee son: As per physicians verbal order. Initial Case Assessment Cardiovascular HR Rhythm NIBP Chest Pain 74 sr 113/62 0 Edema Present Skin color Skin None Normal Warm Dry Circulatory - Right Pulses Dorsalis Pedis Radial 1 3 Scale (0,1,2,3,4,d) Circulatory - Left Pulses Dorsalis Pedis Radial 1 3 Scale (0,1,2,3,4,d) Circulatory - Lower Extremities Color Lower Right Color Lower Left Normal Normal Neurological State Oriented to time-place- Alert Moves all extremities person Respiration - General Respiration Rate SpO2 (%) (B/min) 18 99 Chronological Log Time Study Chronological Log 7:22:00 Patient arrived via Bed. 7:22:10 Patient Name, D.O.B, / Armband Verified By R.N. 7:22:40 Consent signed by the physician and the patient and verified by the Textile Artist staff. 7:22:44 Pre-op and post- op instructions given; patient acknowledges understanding of instructions. 7:22:50 Verbal Stimulation=2 Physical Stimulation=2 Airway=2 Respiration=2 TOTAL=8. (0=absent, 1=li mited, 2=present) 7:24:26 Patient has been NPO for More than 6Hrs. 7:24:27 Skin Breakdown-none per pt 7:24:35 Patient Warmer Placed on the Table. 7:24:36 Disposable Defibrillator Pads Placed On Patient. 7:24:37 Cristopher Prominences Protected 7:24:39 A # 20 IV was noted in the Forearm (left). Grade = 0 0.9ns kvo 7:25:00 A # 22 IV was noted in the Antecubital (right). Grade = 0 0.9ns kvo 7:25:15 History and physical on the chart . 7:29:16 Anesthesia at bedside. Assumes care of patient. Denny Assessment: Initial Case, HR=74 BPM, Rhythm=sr, XTNH=809/62 mmhg, Chest Pain=0, Edema=None, [place] r=Normal, Skin = Warm, Dry Right Pulses: Yadiel Ped=1, Radial=3 Left Pulses: Yadiel Ped=1, Radial=3 7:40:48 Lower Right Extremities: Color=Normal Lower Left Extremities: Color=Normal Neurological: State=Alert, Ox3, [place] Respiration: Resp=18 B/min, SpO2=99 % 7:41:49 Table restraints applied according to hospital policy 7:41:54 2% CHLORHEXIDINE GLUCONATE WASH AND NASAL SWIPE DONE PRIOR TO PROCEDURE. 7:42:00 Bovie ground pad applied to: right thigh for next procedure 1 g VANCOMYCIN DRIP given in lab by Anesthesia, COMMERCIAL DRAFTER via Peripheral IV. Ordered by Chastity Flores . Reason: As per 7:43:31 physicians verbal order. 1 g ANCEF given in lab by Chastity Flores via Peripheral IV. Ordered by Chastity Flores. Reason: As per physicians verbal 7:48:09 order. 7:48:27 Reference ECG taken 7:50:34 Bilateral groins prepped with 2% chlorhexidine. 7:53:24 Pt draped after a 3 minute waiting time. 7:56:29 Anesthesiologist in to review pt's care. 7:59:35 MD paged 8:00:42 MD responded 8:05:40 MD arrived. Time Out. Correct patient, procedure, procedure equipment, site and side verified with physician present. Time 8:08:55 concurred by , individual staff and COMMERCIAL DRAFTER. Time Out #2 - Consents verified, patient in correct position, all results are labled and display ed, safety precautions 8:09:09 taken, antibiotics administered. Time out concurred by MD, individual staff and COMMERCIAL DRAFTER in procedur e 8:09:17 Case Start 8:09:20 20 mL 1% XYLOCAINE given in lab by Chastity Flores via Subcutaneous. Ordered by Chastity Flores. 8:10:01 Vascular access was obtained in the Fem Vein (right). 8:10:29 Vascular access was obtained in the Fem Vein (right). 8:10:42 Vascular access was obtained in the Fem Vein (right). 8:10:46 Vascular access was obtained in the Fem Vein (right). 8:11:03 A SHEATH, EPS, FR5 FAST CATH FR 5 was advanced into the Fem Vein (right) using the Modified Seldinger technique. 8:11:32 A SHEATH, EPS, FR5 FAST CATH FR 5 was advanced into the Fem Vein (right) using the Modified Seldinger technique. 8:11:44 A SHEATH, EPS, FR5 FAST CATH FR 5 was advanced into the Fem Vein (right) using the Modified Seldinger technique. 8:11:51 A SHEATH, EPS, FR6 FAST CATH FR 6 was advanced into the Fem Vein (right) using the Modified Seldinger technique. A CATHETER, JSN, QUAD FR 5 was advanced vis Fem Vein (right) and placed in the CS. Placement was visually 8:14:15 confirmed under fluoroscopy. A CATHETER, JSN, QUAD FR 5 was advanced vis Fem Vein (right) and placed in the HIS. Placement wa s visually 8:15:26 confirmed under fluoroscopy. A CATHETER, JSN, QUAD FR 5 was advanced vis Fem Vein (right) and placed in the LV. Placement was visually 8:16:30 confirmed under fluoroscopy. A CATHETER, JSN, QUAD FR 5 was advanced vis Fem Vein (right) and placed in the HRA. Placement wa s visually 8:17:56 confirmed under fluoroscopy. 8:18:12 EP Study in progress EP Study complete. All catheters removed. Sheaths remain in place and will be removed in revover y area later. 8:26:54 8:30:31 EP Procedure was performed. 8:30:32 Case End 8:30:42 NOTE: This patient is undergoing an additional procedure while still in the Cardiac Cath L ab. 8:30:43 Moving to implant procedure now. End Study - Contrast Media Used In Study Contrast Total Opened (mL) Total Used (mL) Total Wasted (mL) Unspecified 0 0 0 End Study - Maximum Contrast Load Max Contrast Load (mL) 276.6 End Study - Radiation Exposure Fluoro Time (minutes) 1.8 End Study - Patient Disposition Complications Transferred To Interventional Outcome No Telemetry Bed successful
--- NOTE | 2017-08-21 09:31 | EKG ---
Date Performed: 08/21/2017 Time Performed: 06:38:14 PTAGE: 82 years EKG: Sinus rhythm with PAC(s). Leftward axis Left bundle branch block Low QRS voltages in precordial leads Abnormal EC G PREVIOUS TRACING : 04/08/2017 09.00 DOCTOR: Torito Chong Interpretating Date/Time 08/21/2017 09:30:33
--- NOTE | 2017-08-21 09:36 | CATHPROC ---
[employer] HIS Report Study Information Study Number Admission Scheduled Start Study Start [id number] Aug 21 2017 5:48AM 08/21/2017 Aug 21 2017 8:33AM [place] [facility] Electrophysiology Study Admit Source Facility Department Other [facility] [employer] Material Physician and Clinical Staff Initial Chastity [address] Forest Patrolman Lynette Philip RN Forest Patrolman Megan Sánchez,RT(R) TECH2 Recorder Griselda Lynn,ALLISON Sandsub Eloise Rodriguez,CELLOPHANE WRAPPING EXAMINER TECH2 Procedures Performed Procedure Lead Insertion Equipment Time Email Marketing Manager Description Size Mfg Part Number Used/Scraped DEFIBRILLATOR, INTICA 7 VR-T 09:09 BIOTRONIK VVE-VDDR [id number] Used DX 09:02 BIOTRONIK LEAD, PLEXA PRO-MRI DF 65/15 [id number] Used DERMABOND, ADHESIVE SKIN [id number] 08:52 CORDIS/PACER * Used GLUE MINI *[id number] TP-1103 08:52 MEDLINE IND[employer]RIES SUTURE, STRIP PLUS 1/2" * Used *[id number] 08:52 MEDLINE PACER DELANEY, LIMB * 2530 *[id number] Used [id number] 08:52 Quanlight PACER PACK, PACER CUSTOM * Used *[id number] 09:02 Linguastat PACER SAFE SHEATH, FR8, 13CM FR 8 [id number] Used 08:43 Needle Sponge Count 2 22 Used 08:43 Needle Sponge Count 2 2 Used 08:43 Needle Sponge Count 20 200 Used SUTURE, 0 ETHIBOND [CT1] (CX21D), 8pk SUTURE, 2-0 VICRYL [CT1] ([id number]) SUTURE, 2-0 VICRYL [CT1] ([id number]) [id number] 08:52 [employer],WARM AIR CCL * Used *[id number] [facility] PAD, ELECTROSURGICAL 08:52 * [id number] *[id number] Used SURGICAL GROUNDING ORANGE [id number] 08:52 [employer]. / * Used *[id number] Equipment Model, Serial, Lot Number and Expiration Data Description Model Number Serial Number Lot Number Expiration Date DEFIBRILLATOR, INTICA 7 VR-T DX [id number] 11-16-2018 LEAD, PLEXA PRO-MRI DF 65/15 [id number] 05-18-2019 History: Allergies Allergy Reaction No Known Allergies History: Risk Factors Hypertension Dyslipidemia Yes Yes Chronic Lung Disease Labs Hgb (g/dl) Hct (%) RBC (MIL/MM3) WBC (l/cumm) Platelets (thousands) 11.60-17.00 35.00-51.00 4.00-5.90 4.00-11.00 150.00-450.00 13.0 40 4.3 6.2 171 Glucose (mg/dl) BUN (mg/dl) Creatinine (mg/dl) BUN:Creatinine (1:x) 74.00-106.00 7.00-18.00 0.50-1.30 10.00-20.00 77 15 1.0 15 Na (meq/l) K (meq/l) 136.00-145.00 3.50-5.10 138 3.6 INR (PTT:PT) 0.90-1.10 1 Medication Medication Total Dose (Bolus/Oral) Medication Total Dosage/Unit 2% XYLOCAINE 50 mL Medications (Bolus/Oral) Medication Time Given Dosage/Unit Administered By Reason 2% XYLOCAINE 08/21/2017 8:58:03 AM 50 mL Chastity Flores 50 mL 2% XYLOCAINE given in lab by Chastity Flores in Left shoulder via Subcutaneous. Ordered by Chastity Flores. Final Case Assessment Cardiovascular HR NIBP 78 104/57 Edema Present Skin color Skin None Normal Warm Dry Circulatory - Right Pulses Dorsalis Pedis 2 Scale (0,1,2,3,4,d) Circulatory - Left Pulses Dorsalis Pedis 2 Scale (0,1,2,3,4,d) Circulatory - Lower Extremities Color Lower Right Color Lower Left Normal Normal Neurological State Oriented to time-place- Drowsy Moves all extremities person Respiration - General Respiration Rate SpO2 (%) O2 (lpm) (B/min) 20 100 3 Chronological Log Time Study Chronological Log 8:30:43 Initial procedure has been completed. Beginning additional procedure. 8:30:51 Anesthesia remains at bedside and has assumed care of patient. 8:31:24 EPS Sheaths removed from RFV by HH; pressure applied to access site. 8:33:54 2% CHLORHEXIDINE GLUCONATE WASH AND NASAL SWIPE DONE PRIOR TO PROCEDURE. 8:38:59 occlusive dressing applied to rt groin site. First Sponge And Instrument Count Done by Eloise Rodriguez, CELLOPHANE WRAPPING EXAMINER TECH2. 8:41:58 Hypo's: 2, Sponges: 20, Bovie/scratch: 2 Sutures: 11, Blades: 1, Instruments: 26, Syveck Patches: 0 verified by MM 8:42:15 Bilateral Upper Chest Prepped Times Two. 8:45:25 Bovie ground pad remains in place to: right thigh. 8:45:42 Disposable Defibrillator Pads Remain On Patient. 8:46:03 Draped after a 3 min. waiting time. 8:46:52 MD paged 8:52:32 A # 20 IV was noted in the Forearm (left). Grade = 0 0.9% NaCl at kvo 8:53:11 A # 22 IV was noted in the Antecubital (right). Grade = 0 0.9%NaCl at kvo. 8:53:36 MD arrived. Time Out. Correct patient, procedure, procedure equipment, site and side verified with physician present. Time 8:56:55 concurred by MD, individual staff and FRAME TABLE OPERATOR HELPER. Time Out #2 - Consents verified, patient in correct position, all results are labled and display ed, safety precautions 8:57:09 taken, antibiotics administered. Time out concurred by MD, individual staff and FRAME TABLE OPERATOR HELPER in procedur e 8:57:10 Case Start 8:58:03 50 mL 2% XYLOCAINE given in lab by Chastity Flores in Left shoulder via Subcutaneous. Ordered by Chastity Flores. 8:58:53 Reference ECG taken 9:00:35 Vascular access was obtained in the Subclav. Vein (Lft. 9:00:46 Surgical Incision Made. 9:00:48 A pocket was created at the L Upper Chest. 9:01:03 A SAFE SHEATH, FR8, 13CM FR 8 was advanced into the Subclav. Vein (Lft using the Modified Se reyes technique. 9:03:39 A LEAD, PLEXA PRO-MRI DF 65/15 was inserted and positioned in the LV. 9:05:21 Lead placement verified under fluoroscopy 9:05:34 The CS/LV lead impedance and threshold is being tested. 9:06:56 The CS/LV lead was sutured to the fascia. 9:08:38 Pocket flushed with antibiotic solution 9:10:33 A DEFIBRILLATOR, INTICA 7 VR-T DX VVE-VDDR was connected and placed in the pocket. Second Sponge And Instrument Count Done by Eloise Rodriguez, CELLOPHANE WRAPPING EXAMINER TECH2. 9:11:26 Hypo's: 2, Sponges: 20, Bovie/scratch: 2 Sutures: 10, Blades: 1, Instruments: 26, Syveck Patches: 0 verified by MM 9:12:59 Implant Procedure was performed. 9:13:06 A ICD Implant . (Single) 9:14:13 No case complications noted. 9:14:37 Cine recording checked. 9:14:41 Holding Area notified of successful intervention. Spoke with Allen. 9:17:17 Bedside Report will be given. 9:21:37 Implantable Device card placed in patient's chart. 9:21:40 DOCU called back to EP lab. Spoke to Marie 9:24:16 The pocket was closed. 9:26:21 Steri-strips and a sterile dressing applied to site. 9:26:22 Case End Final Sponge And Instrument Count Done by Eloise Rodriguez, CELLOPHANE WRAPPING EXAMINER TECH2. 9:28:50 Hypo's: 2, Sponges: 20, Bovie/scratch: 2 Sutures: 11, Blades: 1, Instruments: 26, Syveck Patches: 0 verified by HH Assessment: Final Case, HR=78 BPM, KEJE=427/57 mmhg, Edema=None, Color=Normal, Skin = Warm, Dry Right Pulses: Yadiel Ped=2 Left Pulses: Yadiel Ped=2 9:35:32 Lower Right Extremities: Color=Normal Lower Left Extremities: Color=Normal Neurological: State=Drowsy, Ox3, BURGOS Respiration: Resp=20 B/min, JcX6=497 %, O2=3 lpm 9:38:14 Patient moved to stretcher 9:39:09 Defibrillator and ground pads removed. Skin intact. End Study - Contrast Media Used In Study Contrast Total Opened (mL) Total Used (mL) Total Wasted (mL) Unspecified 0 0 0 End Study - Maximum Contrast Load Max Contrast Load (mL) 276.6 End Study - Radiation Exposure Fluoro Time (minutes) 1.3 End Study - Patient Disposition Complications Transferred To Interventional Outcome No Telemetry Bed successful
[2017-08-21] MEDS ORDERED: PROPOFOL 200 MG/20 ML AMP IV ONE (12:00)
[2017-08-21] MEDS ORDERED: LIDOCAINE HCL 1% PF 5 ML SYRINGE OTHER ONE (12:00)
[2017-08-21] MEDS ORDERED: PHENYLEPH/NS 1000 MCG/10 ML SYR IV ONE (12:00)
[2017-08-21] MEDS ORDERED: NS 500 ML (EXCEL BAG) INJ 1,000 ML IV ONE (12:00)
[2017-08-21] MEDS ORDERED: ONDANSETRON HCL 4 MG/2 ML VIAL IV PUSH PRN (16:00)
[2017-08-21] MEDS ORDERED: SODIUM CHLORIDE 0.9% FLUSH 10 ML FLUSH IV FLUSH PRN (16:00)
[2017-08-21] MEDS ORDERED: MAGNESIUM HYDROXIDE SUSP 30 ML CUP PO PRN (16:00)
[2017-08-21] MEDS ORDERED: TEMAZEPAM 15 MG CAP PO PRN (16:00)
[2017-08-21] MEDS: ACETAMINOPHEN/HYDROcodone 325 MG/10 MG TAB PO SCH ×2 (16:23→21:18)
[2017-08-21] MEDS: ceFAZolin 2 GM PREMIX 50 ML IV SCH (16:25)
--- NOTE | 2017-08-21 16:26 | RADRPT ---
EXAM DATE/TIME: 08/21/2017 16:00 [place] COMPARISON: CHEST SINGLE AP, April 08, 2017, 9:14. INDICATIONS : Post pacemaker placement. Chest pain. MEDICAL HISTORY : Chronic obstructive pulmonary disease. Former smoker. SURGICAL HISTORY : Pacemaker. ENCOUNTER: Initial ACUITY: 1 day PAIN SCORE: 4/10 LOCATION: Bilateral chest FINDINGS: A single view of the chest demonstrates the lungs to be symmetrically aerated without evidence of mas s, infiltrate or effusion. Pacemaker on the left. The cardiomediastinal contours are unremarkable. Osseous structures are intact. CONCLUSION: Pacemaker, and position. No pneumothorax. Jamil Vora MD FACR on August 21, 2017 at 16:23 Board Certified Radiologist. This report was verified electronically.
--- NOTE | 2017-08-21 18:42 | PD.CARD ---
SINGLE CHAMBER DEFIB IMPLANT PROCEDURE DATE: Aug 21, 2017 NYHA Classification: Class II (Mild) Prevention: Primary Single Chamber Defib Implant PROCEDURE: Single chamber defibrillator implantation. INDICATIONS: Ms. Wilkins is a 82 -year-old female with hx of congestive heart failure , ejection fraction 25, coronary artery disease, to undergo defibrillator implantation for sudden prevention. The risks, the nature and the benefit of the procedure are clearly stated to her . Risks include pneumothorax , cardiac perforation, stroke and even . She understood and agreed to proceed. PROCEDURE: As written, informed consent was obtained prior to the electrophysiology study, the patient was kept on the table where she was prepped and draped in the sterile fashion. Conscious sedation was initiated and maintained throughout the procedure by anesthesiologist. Once sedation was verified, the left infraclavicular area was anesthetized with 2% Xylocaine. Using modified Seldinger technique, the left subclavian vein was cannulated on one occasion and one guide wire was advanced. Then, using #11 blade scalpel, a 3-cm incision was made two fingerbreadths below left clavicle. This incision was then taken down to the deep fascial layer using Bovie cautery and blunt dissection. Into the inferomedial direction, a device pocket was dissected, then the wire was dissected into the pocket. A 2-0 Vicryl suture was placed around the wires to prevent bleeding. At this point, over the wire, the 8- Mozambican dilator and introducer was advanced. As dilator and wire were removed, an active fixation right ventricular pacing, sensing and defibrillatory lead was advanced. After adequate pacing and sensing thresholds were obtained, the lead was secured in the pocket with #2 Ethibond suture. At that point, the pocket was copiously irrigated with antibiotic solution. The leads were connected to the generator and placed into the pocket. I did proceed with wound closure. The deep fascial layer was approximated with 2-0 Vicryl suture in a continuous fashion. The subcutaneous layer was approximated with 2-0 Vicryl suture in a continuous fashion. The subcuticular layer was approximated with 2-0 Vicryl suture in a continuous fashion. Dermabond adhesive was applied to the wound, followed by a sterile pressure dressing. There was no complication. The patient tolerated procedure. Blood loss minimal. 1. Implanted Hardware: The implanted defibrillator generator is a [employer], model number 399081, serial number [id number]. The right ventricular pacing, sensing and defibrillatory lead is a [employer] model number 110239, serial number [id number]. 2. Thresholds: The right ventricular pacing threshold in the bipolar mode was0.8 volts at 0.5 milliseconds, lead impedance 640 ohms and R-wave at 12.1 mV. The right ventricular defibrillatory threshold was not measured. 3. Settings: The device set in VVI 40 defibrillatory portion for two zones, one zone for ventricular tachycardia between 160 and 240 beats per minute. Initial therapy consists of one burst of ATP, one ramp, 81%, 10 pulse, 10 millisecond decremental, followed by 20, then 30 and all subsequent shocks at 40 joules defibrillatory shock, the second zone for ventricular fibrillation above 240 beats per minute, first therapy at 30 and all subsequent shocks at 40 joules defibrillatory shock. CONCLUSIONS: Successful defibrillator implantation. COMMENT AND RECOMMENDATIONS: The patient will be transferred to the telemetry unit, will be observed and when stable can be discharged home. Chastity Flores MD Aug 21, 2017 18:42
--- NOTE | 2017-08-21 18:48 | PD.CARD ---
ELECTROPHYSIOLOGY STUDY PROCEDURE DATE: Aug 21, 2017 ELECTROPHYSIOLOGY STUDY NOTE PROCEDURE Electrophysiology study, coronary sinus cannulation. HISTORY Ms. Wilkins is a 82 -year-old female with congestive heart failure, cardiomyopathy, ejection fraction 25 % referred for electrophysiology study and defibrillator implantation for sudden prevention. The risks, the nature and the benefit of the procedure are clearly stated toher . Risks include pneumothorax, cardiac perforation, stroke and even . She understood and agreed to proceed. PROCEDURE NOTE After written informed consent was obtained, the patient was brought to the EP lab where she was prepped and draped in the usual sterile fashion. Conscious sedation was initiated and maintained throughout the procedure by anesthesiologist. Once sedation was verified, the right inguinal area was anesthetized with 2% Xylocaine. Using modified Seldinger technique, the right femoral vein was cannulated on four occasions and four guidewires were advanced. Then, over the wires three 5 Kuwaiti and a 5 Fr Hemaquets were advanced. Then, under fluoroscopic guidance through the 5 and 6 Kuwaiti Hemaquet four 5 Kuwaiti Sy curved quadripolar electrophysiology catheters were advanced and positioned along the His, upper right atrium, RV apex and coronary sinus. Basic intervals were measured. They were within normal limits. Atrial pacing protocol was performed. No tachyarrhythmia was induced. Ventricular pacing protocol was performed. Ventricular pacing protocol, no tachyarrhythmia was induced. Due to low BP, isuprel was not initiated. At that point, procedure was complete. All catheters and Hemaquet were removed. The patient will be kept on the table and a single chamber defibrillator will be implanted for sudden primary prevention. No incident reported. The patient tolerated the procedure. Blood loss minimal. IMPRESSION 1. Electrocardiogram: At baseline the patient was in atrial fibrillation. Post-procedure electrocardiogram was unchanged. 2. Basic Interval: The basic cycle length was around 720 milliseconds. AH 96ms. H-V was around 62 milliseconds. 3. Ventricular Pacing Protocol: No tachy was induced CONCLUSIONS Negative electrophysiology for supraventricular and ventricular ventricular. COMMENT AND RECOMMENDATION The patient will be kept on the table and single chamber defibrillator will be implanted for sudden primary prevention. Chastity Flores MD Aug 21, 2017 18:48
[2017-08-21] MEDS ORDERED: traZODone HCL 50 MG TAB PO SCH (21:00)
[2017-08-21] MEDS: SODIUM CHLORIDE 0.9% FLUSH 10 ML FLUSH IV FLUSH SCH (21:00)
[2017-08-21] MEDS ORDERED: ATORVASTATIN 10 MG TAB PO SCH (21:00)
[2017-08-21] MEDS: CARVEDILOL 6.25 MG TAB PO SCH (21:18)
[2017-08-21] MEDS: BUDESONIDE-FORMOTEROL 80/4.5 MCG INHALER INH SCH (21:19)
[2017-08-21] MEDS: DICYCLOMINE HCL 10 MG CAP PO SCH (21:26)
[2017-08-22] VITALS (8 sets, daily range): BP systolic 90–92; BP diastolic 54–56; PULSE 58–65; RESP 16; TEMP 97.7–98.5; O2SAT 92–93
[2017-08-22] MEDS: ceFAZolin 2 GM PREMIX 50 ML IV SCH ×2 (01:03→09:34)
[2017-08-22] MEDS: ACETAMINOPHEN/HYDROcodone 325 MG/10 MG TAB PO SCH ×2 (03:35→09:34)
[2017-08-22] MEDS ORDERED: LEVOTHYROXINE SODIUM 88 MCG TAB PO SCH (06:00)
[2017-08-22] MEDS ORDERED: CEPH-460 PO (07:40)
--- NOTE | 2017-08-22 07:44 | PD.CARD.PN ---
Subjective Subjective Remarks Feels okay. Objective Medications Current Medications Medications (Trade) Dose Ordered Sig/King Route Start Time Stop Time Status Last Admin Lactated Ringer's 1,000 ml @ 30 mls/hr Q24H PRN IV 08/21/17 06:15 08/24/17 06:14 Sodium Chloride 500 ml @ 30 mls/hr [id number] PRN IV 08/21/17 06:15 08/24/17 06:14 (Lopressor) 25 mg IAP DISPLAYS ANALYST PRN PO 08/21/17 06:15 08/24/17 06:14 (Betadine 5% Antisepsis Kit) 1 applic IAP DISPLAYS ANALYST PRN EACH NARE 08/21/17 06:15 08/24/17 06:14 (Chlorhexidine 2% Cloth) 3 pack IAP DISPLAYS ANALYST PRN TOPICAL 08/21/17 06:15 08/24/17 06:14 Sodium Chloride 500 ml @ 30 mls/hr [id number] IV 08/21/17 06:30 08/21/17 06:30 (Ativan) 1 mg IAP DISPLAYS ANALYST SL 08/21/17 06:30 08/24/17 06:29 Cefazolin Sodium/ Dextrose 50 ml @ 100 mls/hr Q8H IV 08/21/17 16:00 08/22/17 08:29 08/22/17 01:03 (Restoril) 15 mg HS PRN PO 08/21/17 16:00 (Milk Of Magnesia Liq) 30 ml Q6H PRN PO 08/21/17 16:00 (Zofran Inj) 4 mg Q4H PRN IV PUSH 08/21/17 16:00 (NS Flush) 2 ml BID IV FLUSH 08/21/17 21:00 08/21/17 21:00 (NS Flush) 2 ml UNSCH PRN IV FLUSH 08/21/17 16:00 ([place] 10-325 Mg) 1 tab Q6H PO 08/21/17 16:00 08/22/17 03:35 (Ecotrin Ec) 162 mg DAILY PO 08/22/17 09:00 (Lipitor) 10 mg HS PO 08/21/17 21:00 08/21/17 21:18 (Coreg) 6.25 mg BID PO 08/21/17 21:00 08/21/17 21:18 (Bentyl) 10 mg BID PO 08/21/17 21:00 08/21/17 21:26 (Synthroid) 88 mcg DAILY@0600 PO 08/22/17 06:00 08/22/17 06:08 (Desyrel) 50 mg HS PO 08/21/17 21:00 08/21/17 21:18 (Symbicort 80-4.5 Mcg Inh) 2 puff BID INH 08/21/17 21:00 08/21/17 21:19 (Theragran) 1 tab DAILY PO 08/22/17 09:00 Vital Signs / I&O Vital Signs Date Time Temp Pulse Resp B/P (MAP) Pulse Ox O2 Delivery O2 Flow Rate FiO2 08/22/17 06:26 63 08/22/17 05:13 65 08/22/17 04:00 60 08/22/17 03:00 97.7 65 90/56 (67) 92 08/22/17 03:00 61 08/22/17 02:00 58 08/22/17 01:00 64 08/22/17 00:00 64 08/21/17 23:00 65 08/21/17 23:00 98.1 62 89/56 (67) 94 08/21/17 22:00 74 08/21/17 21:00 72 08/21/17 20:00 74 08/21/17 20:00 98.4 77 98/49 (65) 95 08/21/17 19:00 74 08/21/17 16:00 98.4 78 18 105/65 (78) 96 08/21/17 14:40 97.7 84 20 115/62 (79) 97 08/21/17 09:51 97 Room Air I/O 08/21/17 08/21/17 08/21/17 08/22/17 08/22/17 08/22/17 07:00 15:00 23:00 07:00 15:00 23:00 Intake Total 410 ml 120 ml Balance 410 ml 120 ml Intake Oral 360 ml 120 ml IV Total 50 ml # Voids 1 2 # Bowel Movements 0 Physical Exam GENERAL: Well-nourished, well-developed patient. SKIN: Warm and dry. Left chest wall incision well approximated without erythema or drainage. Groin sites soft without bruising or bleeding. HEAD: Normocephalic. EYES: No scleral icterus. No injection or drainage. NECK: Supple, trachea midline. No JVD or lymphadenopathy. CARDIOVASCULAR: Regular rate and rhythm without murmurs, gallops, or rubs. RESPIRATORY: Breath sounds equal bilaterally. No accessory muscle use. GASTROINTESTINAL: Abdomen soft, non-tender, nondistended. EXTREMITIES: No cyanosis, or edema. NEUROLOGICAL: Awake, alert, and oriented x 3. Non-focal. Imaging Last Impressions Chest X-Ray 08/21/17 0000 Signed Impressions: Service Date/Time: Monday, August 21, 2017 16:00 - CONCLUSION: Pacemaker, and position. No pneumothorax. Jamil Vora MD FACR Assessment and Plan Problem List: (1) Cardiomyopathy ICD Codes: I42.9 - Cardiomyopathy, unspecified Plan: EF 25%. ICD implanted for sudden cardiac prevention. (2) S/P ICD (internal cardiac defibrillator) procedure ICD Codes: Z95.810 - Presence of automatic (implantable) cardiac defibrillator Plan: Stable status post ICD implantation. Discharge home. Follow-up with Dr. sauer in 2 weeks per my discussion with him. Problem Qualifiers (1) Cardiomyopathy: Qualified Codes: I25.5 - Ischemic cardiomyopathy Marjorie Paiz Aug 22, 2017 07:44
[2017-08-22] MEDS ORDERED: MULTIVITAMIN TAB PO SCH (09:00)
[2017-08-22] MEDS ORDERED: ASPIRIN EC 81 MG TABEC PO SCH (09:00)
[2017-08-22] MEDS: BUDESONIDE-FORMOTEROL 80/4.5 MCG INHALER INH SCH (09:34)
[2017-08-22] MEDS: DICYCLOMINE HCL 10 MG CAP PO SCH (09:35)
[2017-08-22] MEDS: SODIUM CHLORIDE 0.9% FLUSH 10 ML FLUSH IV FLUSH SCH (09:35)
[2017-08-22] MEDS: CARVEDILOL 6.25 MG TAB PO SCH (09:35)
--- NOTE | 2017-08-23 19:18 | EKG ---
Date Performed: 08/22/2017 Time Performed: 06:03:10 PTAGE: 82 years EKG: Sinus rhythm IV conduction defect Possible anterior infarct - age undetermined Inferior/lateral ST-T changes may be due to myocardial ischemia Abnormal ECG PREVIOUS TRACING : 08/21/2017 16.52 DOCTOR: Chastity Flores Interpretating Date/Time 08/23/2017 19:17:55
--- NOTE | 2017-08-23 23:42 | EKG ---
Date Performed: 08/21/2017 Time Performed: 16:52:12 PTAGE: 82 years EKG: Sinus rhythm Leftward axis IV conduction defect Possible anterior infarct - age undetermined Inferior/lateral ST- T changes may be due to myocardial ischemia Abnormal ECG PREVIOUS TRACING : 08/21/2017 06.38 DOCTOR: Chastity Flores Interpretating Date/Time 08/23/2017 23:40:20
== END 2017-08-22 10:52 | disposition home or self-care (01) ==
LOC: HDIC 05:48 → HDOC 05:48 → HCIS 12:51 → HDOC 08-22 10:52
PROVIDERS: ATTEND Internal Medicine Interventional Cardiology
DX: I11.0 Hypertensive heart disease with heart failure (principal); I50.20 Unspecified systolic (congestive) heart failure; I42.9 Cardiomyopathy, unspecified; I44.7 Left bundle-branch block, unspecified; I34.0 Nonrheumatic mitral (valve) insufficiency; E78.5 Hyperlipidemia, unspecified; R06.02 Shortness of breath; Z87.891 Personal history of nicotine dependence
CPT/HCPCS: 00530; 33249; 71045; 80048; 85025; 85610; 85730; 86850; 86900; 86901; 93005; 93619; C1722; C1730; C1777; J0690; J1644; J2370; J3010; J3370; J7040

== ENCOUNTER 2017-10-04 09:01 | Emergency (ER) | payer OTHER ==
[~2017-10-04] VITALS: Ht 152.4 cm; Wt 54.9 kg
[~2017-10-04 09:01] MED LIST changes: -ADVI200T17 PO; -ATOR20TA15 PO; +CARV6.252 PO; -CEFU1TAB20 PO; +CEPH-460 PO; -FURO20TA PO; -KLOR10TA PO; -PRED20 PO; +SACU1TAB7 PO; +TRAZ50TA12 PO
[2017-10-04 09:05] VITALS: BP 109/58; PULSE 74; RESP 18; TEMP 98.4; O2SAT 94
[2017-10-04] MEDS ORDERED: DICY10CA12 PO (09:17)
[2017-10-04] MEDS ORDERED: SPIR25 PO (09:17)
[2017-10-04] MEDS ORDERED: predniSONE 20 MG TAB PO ONE (09:30)
[2017-10-04] MEDS ORDERED: RESP: ALBUTEROL 2.5 MG/IPRATROPIUM 0.5 MG NEB (SCH) INH ONE (09:30)
--- NOTE | 2017-10-04 09:31 | PD ---
HPI Chief Complaint: Cold / Flu Symptoms Time Seen by Provider: 09:15 Travel History International Travel<30 days: No Contact w/Intl Traveler<30days: No Traveled to known affect area: No History of Present Illness HPI 82-year-old female, with history of COPD, presents to the emergency department with complaint of cough and chest congestion 1 week. Denies ear pain, sore throat, nasal congestion. Denies fever, vomiting. Denies chest pain, shortness of breath. Has been using her Advair inhaler and her albuterol inhaler 3 times daily as prescribed. Cough is worse at night. Symptoms are mild in severity. No known aggravating factors. Has primary care provider. No known allergies. Has no medical complaints. No other modifying factors or associated signs and symptoms. PFSH Past Medical History Hx Anticoagulant Therapy: Yes (ASA 81MG DAILY) Cancer: Yes (skin) Cardiovascular Problems: Yes (rhythm) High Cholesterol: Yes Chest Pain: No COPD: Yes Diabetes: No Diverticulitis: Yes Gastrointestinal Disorders: No GERD: Yes Glaucoma: No Hepatitis: No Respiratory: Yes (COPD) Thyroid Disease: Yes ?: Not Past Surgical History Abdominal Surgery: Yes (several abd surgies r/t twisted bowel and one resectin r/t diverticulitis) Genitourinary Surgery: Yes (bladder mesh) Gynecologic Surgery: Yes (hysterectomy) Other Surgery: Yes Social History Alcohol Use: Yes (seldom) Tobacco Use: No (quit 17 yrs ago smoked cigs) Substance Use: No Allergies-Medications (Allergen,Severity, Reaction): Coded Allergies: No Known Allergies (Unverified Allergy, Unknown, 10/04/17) Reported Meds & Prescriptions Reported Meds & Active Scripts Active Tessalon Perles (Benzonatate) 100 Mg Cap 100 Mg PO TID PRN Deltasone (Prednisone) 20 Mg Tab 40 Mg PO DAILY 4 Days start 10/05/2017 Azithromycin 500 Mg Tab 500 Mg PO DAILY Reported Aldactone (Spironolactone) 25 Mg Tab 25 Mg PO DAILY Dicyclomine (Dicyclomine HCl) 10 Mg Cap 10 Mg PO BID Trazodone (Trazodone HCl) 50 Mg Tab 50 Mg PO HS Entresto (Sacubitril-Valsartan) 49-51 Mg Tab 1 Tab PO DAILY Carvedilol 6.25 Mg Tab 6.25 Mg PO BID Albuterol Neb (Albuterol Sulfate) Unknown Strength Neb Unknown Dose NEB QID NEB PRN Lipitor (Atorvastatin Calcium) 10 Mg Tab 10 Mg PO HS Multiple Vitamin 1 Tab 1 Tab PO DAILY Calcium 600 with Vitamin D (Calcium Carbonate-Cholecalciferol) 600-400 mg-Unit Tab 1 Tab PO DAILY Lomotil (Diphenoxylate-Atropine) 2.5-0.025 Mg Tab 1 Tab PO DAILY PRN Synthroid (Levothyroxine Sodium) 88 Mcg Tab 88 Mcg PO DAILY Review of Systems Except as stated in HPI: all other systems reviewed are Neg Physical Exam Narrative GENERAL: Well-nourished, well-developed elderly, female patient, in no acute distress; afebrile, nontoxic-appearing SKIN: Warm and dry. No rash. HEAD: Atraumatic. Normocephalic. EYES: Pupils equal and round. No scleral icterus. No injection or drainage. ENT: Mucosa pink and moist. No erythema or exudates. No uvular edema. No uvular , palatal, or tonsillar deviation. Airway patent. EARS: Bilateral pinnae and external canals appear within normal limits. Bilateral tympanic membranes without erythema, dullness or perforation. NECK: Trachea midline. No lymphadenopathy. CARDIOVASCULAR: Regular rate and rhythm. No murmur appreciated. RESPIRATORY: No accessory muscle use. Clear to auscultation with decreased lung sound in bilateral bases. Breath sounds equal bilaterally. No retractions or tachypnea. GASTROINTESTINAL: Abdomen soft, non-tender, nondistended. Hepatic and splenic margins not palpable. Bowel sounds are active 4 quadrants. MUSCULOSKELETAL: No obvious deformities. No clubbing. No cyanosis. No edema. NEUROLOGICAL: Awake and alert. Oriented 3. No obvious cranial nerve deficits. Motor grossly within normal limits. Normal speech. Moves all extremities. 5/5 strength to all extremities. PSYCHIATRIC: Appropriate mood and affect; insight and judgment normal. Data Data Last Documented VS Vital Signs Date Time Temp Pulse Resp B/P (MAP) Pulse Ox O2 Delivery O2 Flow Rate FiO2 10/04/17 09:05 98.4 74 18 109/58 (75) 94 Orders Orders Prednisone (Deltasone) (10/04/17 09:30) Albuterol-Ipratropium Neb (Duoneb Neb) (10/04/17 09:30) Ed Discharge Order (10/04/17 10:13) MDM Medical Decision Making Medical Screen Exam Complete: Yes Emergency Medical Condition: Yes Medical Record Reviewed: Yes Differential Diagnosis COPD exacerbation, upper respiratory infection, viral illness, influenza, pneumonia Narrative Course 82-year-old female with history of COPD with upper respiratory symptoms and COPD exacerbation. Patient is in no acute distress. No retractions or tachypnea. Lungs are clear and equal throughout and with decreased lung sounds in bilateral bases. This may be baseline for the patient. Oxygen saturation is 94% on room air which also may be baseline for patient. He denies chest pain or shortness of breath. Patient is afebrile nontoxic appearing. She denies fever, vomiting. DuoNeb and prednisone ordered. 1011: On reexamination patient's lung sounds are clear and equal throughout with some improvement in lung sounds in the bases. She is in no acute distress. Continues to deny chest pain or shortness of breath. No retractions or tachypnea. Azithromycin, Deltasone, Tessalon Perles prescribed for home. Patient has albuterol inhaler and says she does not refill. Instructed patient to follow up with primary care provider. Patient verbalizes understanding and agreement with treatment plan. Patient is medically cleared and stable for discharge. Discussed reasons to return to the emergency department. Patient agrees with treatment plan. The patients vital signs are stable and the patient is stable for outpatient follow-up and treatment. Patient discharged home, stable and in no acute distress. Diagnosis Primary Impression: Upper respiratory infection Qualified Codes: J06.9 - Acute upper respiratory infection, unspecified Additional Impression: COPD exacerbation Referrals: Primary Care Physician Patient Instructions: COPD (Chronic Obstructive Pulmonary Disease) (ED), General Instructions, Upper Respiratory Infection (ED) Additional Instructions: Antibiotics as prescribed Use Albuterol inhaler as prescribed Take oral steroids as prescribed and complete full course Use Tessalon Perles as prescribed to decrease coughing spasms Raei-fic-docucfy decongestants or antihistamines as directed and as needed for symptom management Your cough can last 4-6 weeks Drink plenty of fluids to prevent dehydration Use hot air humidifier to decrease cough exacerbation Turn off ceiling fans and sleep with head of bed elevated Avoid triggers such as second hand smoke, dust, known allergens Follow-up with your primary care provider Return to the emergency department immediately with worsening of symptoms Med/Other Pt SpecificInfo: Prescription(s) given Scripts Benzonatate (Tessalon Perles) 100 Mg Cap 100 MG PO TID Y for COUGH, #10 CAP 0 Refills Prov: Tiarra Mack 10/04/17 Prednisone (Deltasone) 20 Mg Tab 40 MG PO DAILY for 4 Days, #8 TAB 0 Refills start 10/05/2017 Prov: Tiarra Mack 10/04/17 Azithromycin (Azithromycin) 500 Mg Tab 500 MG PO DAILY for Infection, #5 TAB 0 Refills Prov: Tiarra Mack 10/04/17 Disposition: 01 DISCHARGE HOME Condition: Stable Tiarra Mack Oct 04, 2017 09:31
[2017-10-04] MEDS ORDERED: PRED-503 PO (10:13)
[2017-10-04] MEDS ORDERED: BENZ100 PO (10:13)
[2017-10-04] MEDS ORDERED: AZIT500T2 PO (10:13)
== END 2017-10-04 10:23 | disposition home or self-care (01) ==
LOC: PHEFT 09:01
DX: J06.9 Acute upper respiratory infection, unspecified (principal); J44.1 Chronic obstructive pulmonary disease with (acute) exacerbation; Z87.891 Personal history of nicotine dependence
CPT/HCPCS: 94664; 99283; J7512

== ENCOUNTER 2017-12-16 20:40 | Emergency (ER) | payer OTHER ==
[~2017-12-16 20:40] MED LIST changes: -ADVA100A INH; -ASPI1TAB56 PO; +AZIT500T2 PO; +BENZ100 PO; -CEPH-460 PO; -GLUC500C5 PO; +PRED-503 PO; +SPIR25 PO
[2017-12-16 20:54] VITALS: BP 100/59; PULSE 72; RESP 20; TEMP 97.4; O2SAT 94
== END 2017-12-16 21:43 | disposition left against medical advice (07) ==
LOC: PHED 20:40
DX: R42 Dizziness and giddiness (principal); R03.1 Nonspecific low blood-pressure reading; Z53.21 Procedure and treatment not carried out due to patient leaving prior to being seen by health care provider
CPT/HCPCS: 99281